=== PATIENT | female | born 1980 | race Caucasian/White ===

== ENCOUNTER → 2022-09-05 09:55 | Outpatient (CLI) | payer OTHER, MEDICAID, SELFPAY | PROVIDERS: Family Provider Family Medicine; PCP Physician Assistant; Visit Provider Physician Assistant | DX: L02.91 Cutaneous abscess, unspecified (principal) | CPT/HCPCS: 87070; 87075; 87205 ==

== ENCOUNTER 2023-10-06 21:53 | Inpatient (IN) | payer OTHER, MEDICAID, SELFPAY ==
[2023-10-06 21:59] VITALS: BP 133/80; PULSE 135; RESP 24; TEMP 37.1; O2SAT 98; BMI 35.5
--- NOTE | 2023-10-06 22:14 | ED.GENADULT ---
HPI - General Adult General Chief complaint: Toxicology Problem Stated complaint: Dr kaba for alcohol addiction Time Seen by Provider: 10/06/23 21:55 Source: patient Mode of arrival: Ambulatory History of Present Illness HPI narrative: Patient is a 43-year-old female. Has a known history of alcohol abuse. Has been to rehab multiple times over the past several years. She is currently drinking. Her last drink was in the past 24 hours. She has jaundice. She states she has a current history of ?alcoholic hepatitis? she states she is been talking with her primary doctor about getting into rehab/detox. She is been trying to decrease the amount that she has been drinking over the past several days. She drank less over the past 24 hours than what she did over the 24 hours prior to that. She is here because she is having swelling in her left lower extremity. She is also feeling like her abdomen is very distended. No fevers. No chest pain. No shortness of breath. No nausea or vomiting. No headache. No urinary symptoms or change in bowel habits. She does have a significant history of anxiety. She did recently complete a course of antibiotics for urinary tract infection. Related Data Previous Rx's Medication Instructions Recorded albuterol sulfate 90 mcg/actuation 2 puff inhalation Q4-6H PRN 08/27/23 aerosol inhaler shortness of breath or wheezing #8.5 grams methocarbamol 750 mg tablet 750 mg PO TID #30 tabs 09/24/23 naltrexone 50 mg tablet 50 mg PO DAILY #90 tabs 09/24/23 nitrofurantoin 100 mg PO BID #10 caps 09/24/23 monohydrate/macrocrystals 100 mg capsule (Macrobid) Allergies Allergy/AdvReac Type Severity Reaction Status Date / Time Penicillins Allergy Unknown Verified 08/27/23 13:52 hydrocodone AdvReac Unknown Verified 08/27/23 13:52 Review of Systems Review of Systems ROS Unobtainable: All systems reviewed & are unremarkable except as noted in HPI and below Patient History Medical History Chicken pox (~1983) Social History Smoking Status: Former smoker Smoking Status: Former smoker alcohol intake frequency: 3 or more drinks per day Alcohol type: hard liquor Substance Use Type: marijuana Exam Initial Vital Signs Initial Vital Signs: Vital Signs Temperature 98.8 F 10/06/23 21:59 Pulse Rate 135 H 10/06/23 21:59 Respiratory Rate 24 10/06/23 21:59 Blood Pressure 133/80 10/06/23 21:59 Pulse Oximetry 98 10/06/23 21:59 Oxygen Delivery Method Room Air 10/06/23 21:59 HENMT Head: normal to inspection and normocephalic Face and sinus: normal facial exam Mouth: moist mucous membranes Eyes Other: Jaundice Resp Effort & Inspection: normal respiratory effort Auscultation: clear to auscultation bilaterally Cardio Rate: tachycardic Rhythm: regular rhythm GI Inspection: distended Palpation: soft, No firm, No guarding and tender (Diffuse tenderness) Skin General: no rashes or lesions noted Neuro General: patient alert, patient awake, patient oriented x3 and moves all extremities Extrem General: capillary refill normal Procedures Paracentesis Time Out Performed: Yes Indication: Ascites Procedure: diagnostic paracentesis Local Anesthetic: lidocaine 1% Amount of anesthesia used (mL): 8 Preparation: sterile prep and drape and Blade used to make león in skin Fluid: clear Post Procedure Exam: awake, alert and normal BP Patient Tolerated Procedure: Well and No complications Scores GCS Yvette coma scale eye opening: Spontaneous [place] coma scale verbal response: Orientated Yvette coma scale motor response: Obey commands [place] coma scale total score: 15 Course Orders Ordered: ED Orders 10/06/23 22:14 US abdomen limited Stat US periph venous low extrem lt Stat 10/06/23 23:15 Urine Drug Screen, Rapid Stat 10/06/23 23:21 Consult to SHIRT MARKER - Costume Design Teacher Stat 10/06/23 23:25 Acetaminophen Stat Basic Metabolic Panel Stat Complete Blood Count AUTO DIFF Stat Ethanol (ETOH) Stat Hepatic (Liver) Panel Stat Hepatitis Acute Panel Stat Lipase Stat PTT Partial Thromboplastin Mario Stat Test Serum,Qual Stat Prothrombin Time INR Stat 10/07/23 01:29 Body Fluid Culture Stat Cell Count w Diff Body Fluid Stat 10/07/23 02:47 CT abdomen pelvis w con Stat 10/07/23 04:37 Blood Culture Stat Lactate (Lactic Acid) Stat Procalcitonin Stat Discontinued Medications Ceftriaxone Sodium 2,000 mg/ (Sodium Chloride) 100 mls @ 200 mls/hr IV NOW ONE Stop: 10/07/23 04:28 Phenobarbital (Phenobarbital 65 Mg/Ml Vial) 260 mg IV NOW ONE Stop: 10/07/23 00:46 Last Admin: 10/07/23 01:02 Dose: 260 mg Documented By: LYSSA Vital Signs Vital signs: Vital Signs - 8 hr 10/06/23 21:59 10/06/23 22:38 10/06/23 22:38 Temperature 98.8 F Pulse Rate 135 H 125 H Respiratory Rate 24 Blood Pressure 133/80 136/76 Pulse Oximetry 98 97 Oxygen Delivery Method Room Air 10/06/23 23:00 10/06/23 23:00 10/06/23 23:28 Temperature Pulse Rate 119 H 123 H Respiratory Rate Blood Pressure 135/73 Pulse Oximetry 99 100 Oxygen Delivery Method 10/06/23 23:28 10/06/23 23:30 10/06/23 23:30 Temperature Pulse Rate 125 H Respiratory Rate Blood Pressure 137/76 141/82 H Pulse Oximetry 99 Oxygen Delivery Method 10/07/23 00:00 10/07/23 00:00 10/07/23 00:30 Temperature Pulse Rate 121 H 70 Respiratory Rate 16 Blood Pressure 134/71 Pulse Oximetry 97 97 Oxygen Delivery Method 10/07/23 01:00 10/07/23 01:30 10/07/23 01:45 Temperature Pulse Rate 124 H 126 H Respiratory Rate Blood Pressure 137/70 Pulse Oximetry 99 98 Oxygen Delivery Method 10/07/23 01:45 10/07/23 02:00 10/07/23 02:00 Temperature Pulse Rate 125 H 123 H Respiratory Rate 18 Blood Pressure 140/71 Pulse Oximetry 99 95 Oxygen Delivery Method 10/07/23 02:23 10/07/23 02:23 10/07/23 02:30 Temperature Pulse Rate 129 H Respiratory Rate Blood Pressure 145/81 H 139/80 Pulse Oximetry 98 Oxygen Delivery Method 10/07/23 02:30 10/07/23 03:00 10/07/23 03:00 Temperature Pulse Rate 122 H 127 H Respiratory Rate Blood Pressure 140/77 Pulse Oximetry 97 98 Oxygen Delivery Method Medical Decision Making Lab Data Lab results reviewed: Yes I reviewed the patient's lab results. 10/06/23 23:25 10/06/23 23:25 Labs: Lab Results 10/06/23 10/06/23 10/07/23 Range/Units 23:15 23:25 01:29 WBC 18.4 H (4.5-11.0) X10^3/uL RBC 2.94 L (4.0-5.2) X10^6/uL Hgb 11.2 L (12.0-16.0) g/dL Hct 33.5 L (36-46) % MCV 113.9 H (80-100) fL MCH 37.9 H (26-34) PG MCHC 33.3 (30-36) % RDW 17.7 H (11.6-14.8) % Plt Count 219 (150-400) X10^3/uL Neut % (Auto) 83.2 H (50-75) % Lymph % (Auto) 11.2 L (25-40) % [place] % (Auto) 4.1 (3-14) % Eos % (Auto) 1.1 L (2-4) % Baso % (Auto) 0.4 (0-2) % Neut # (Auto) 12948 H (6226-4300) /uL Lymph # (Auto) 2100 (0353-8401) /uL [place] # (Auto) 800 (0-900) /uL Eos # (Auto) 200 (0-450) /uL Baso # (Auto) 100 (0-100) /uL RBC Morphology See below Macrocytosis 2+ H Stomatocytes 2+ H PT 17.0 H (9.4-12.5) SECONDS INR 1.5 H (0.9-1.3) APTT 32 (25.1-36.5) SECONDS Sodium 130 L (137-145) mmol/L Potassium 3.3 L (3.4-5.1) mmol/L Chloride 95 L (98-107) mmol/L Carbon Dioxide 24 (22-32) mmol/L BUN 5 L (7-17) mg/dL Creatinine 0.44 L (0.52-1.04) mg/dL Estimated GFR > 60 (>60) mL/min BUN/Creatinine Ratio 11.4 (6-22) Glucose 97 (70-100) mg/dL Calcium 8.1 L (8.4-10.2) mg/dL Total Bilirubin 6.0 H (0.2-1.3) mg/dL Conjugated Bilirubin 1.6 H (0.0-0.3) md/dL Unconjugated Bilirubin 2.0 H (0.0-1.1) mg/dL AST 195 H (14-36) IU/L ALT 97 H (<35) IU/L Alkaline Phosphatase 409 H (38-126) U/L Total Protein 7.8 (6.3-8.2) g/dL Albumin 3.0 L (3.5-5.0) g/dL Globulin 4.8 H (1.7-4.1) g/dL Albumin/Globulin Ratio 0.6 L (1.0-2.8) Lipase 161 (23-300) U/L Serum , Qual Negative (Negative) Fluid Color Yellow Fluid Appearance Clear Fluid RBC 1025 /uL Fld Tot Nucleated Cell 159 /uL Fluid Polynuclear WBCs 11 % Fluid Mononuclear WBCs 89 % Fluid Eosinophils 0 % Fluid Other Cells 0 % Body Fluid Clot No clots present U Opiates 300ng/mL cut Negative (Negative) Ur Oxycodone Screen Negative (Negative) Urine Methadone Screen Negative (Negative) Acetaminophen < 10 (10-30) ug/mL Ur Barbiturates Screen Negative (Negative) U Tricyclic Antidepress Negative (Negative) Ur Phencyclidine Scrn Negative (Negative) Ur Amphetamines Screen Negative (Negative) U Methamphetamines Scrn Negative (Negative) Ur MDMA Scrn (Ecstasy) Negative (Negative) U Benzodiazepines Scrn Negative (Negative) Urine Cocaine Screen Negative (Negative) U Marijuana (THC) Screen Positive H (Negative) Ethyl Alcohol 44 H ( - 10) mg/dL Imaging Data US - abdomen: Radiologist's Impression: PROCEDURE: US ABDOMEN LIMITED INDICATIONS: DISTENTION; HISTORY ALCOHOLIC HEPATITIS TECHNIQUE: Real-time scanning was performed of the abdominal, with image documentation. COMPARISON: [facility], US, ABDOMEN COMPLETE, 06/16/2012, 13:02. FINDINGS: Liver: Measures 22.7 cm in length. Increased in echogenicity. No obvious focal lesion. Decreased sonographic penetration. Gallbladder: Nondilated. No stones or sludge. Normal gallbladder wall thickness. No pericholecystic fluid. Negative sonographic Roberson's sign. Biliary ducts: Not well seen. No intrahepatic biliary ductal dilatation is identified. Pancreas: Not well seen due to overlying bowel gas. Miscellaneous: Moderate ascites in the right right lower and left lower quadrants. IMPRESSION: Decreased sonographic penetration. Limited sensitivity. 1. Liver is mildly enlarged. Increased hepatic echogenicity which could be due to hepatocellular disease and/or hepatic steatosis. 2. No acute cholecystitis demonstrated. No gallstones identified. 3. Moderate ascites. US - DVT: Radiologist's Impression: PROCEDURE: US PERIPH VENOUS LOW EXTREM LT INDICATIONS: EDEMA TECHNIQUE: Real-time imaging, as well as color and pulse Doppler interrogation, were performed of the lower extremity deep veins from the inguinal ligament to the popliteal fossa, with documentation of the visualized calf veins. COMPARISON: None. FINDINGS: The common femoral, femoral, popliteal, and the visualized calf veins are normally compressible, and free of intraluminal thrombus. Color and pulse Doppler demonstrate normal phasic intraluminal flow. There is normal augmentation response to distal compression maneuver. IMPRESSION: No findings of lower extremity deep venous thrombosis. CT scan - abdomen/pelvis: Radiologist's Impression: Diffuse circumferential wall thickening of the ascending and transverse colon compatible with colitis. No pericolonic focal drainable collection or pneumoperitoneum. Sequela of cirrhosis Indeterminate low-attenuation hepatic lesions. Recommend contrast-enhanced MRI of the abdomen for further evaluation. Abdominal and pelvic ascites. Gallbladder is contracted with pericholecystic fluid present. [facility] Narrative Medical decision making narrative: Patient has been persistently tachycardic since arrival. She also has a leukocytosis. Has new onset ascites. Paracentesis performed. Culture was pending. No organisms seen on Gram stain. Has a absolute polymorphic nuclear site count of approximately 700. She is afebrile. She had some improvement of the abdominal discomfort after the paracentesis but no improvement with her tachycardia. She did have some periods of anxiety. She was given 2 in her 60 mg of phenobarbital. She states her anxiety has resolved but again still continues to be tachycardic. CT scan does show thickening of the ascending and transverse colon consistent with colitis. She has had some diarrhea. She is multiple reasons to have the leukocytosis and the tachycardia to include her recent urinary tract infection, colitis, anxiety, alcohol withdrawal, dehydration or just her alcohol abuse history however peritonitis is a very high concern. She is new onset ascites, has abdominal pain, leukocytosis and an unexplained tachycardia. I did discuss the case with GI at [facility] who agreed that peritonitis is a concern. Recommended antibiotics and admission to the hospital. I did discuss the case with Dr. Kirk hospitalist on-call who will admit until the peritoneal cultures result. I did discuss the need for admission with the patient. She expressed understanding and agreement with plan. Discharge Plan Departure Patient Disposition: Admitted As Inpatient Clinical Impression: Peritonitis, Hyperbilirubinemia, Ascites, Alcohol abuse, Colitis Admit Date/Time: 10/07/23 04:39 Admit Provider: Cam An
[2023-10-06 22:38] VITALS: BP 136/76; PULSE 125; O2SAT 97
[2023-10-06 23:00] VITALS: BP 135/73; PULSE 119; O2SAT 99
[2023-10-06 23:28] VITALS: BP 137/76; PULSE 123; O2SAT 100
[2023-10-06 23:30] VITALS: BP 141/82; PULSE 125; O2SAT 99
[2023-10-06 23:30] LABS: UR Morphine/Opiate cutoff 300 Negative (Negative); Ur Creatinine Normal (Normal); Ur Specific Gravity Normal (Normal); Urine Amphetamines Negative (Negative); Urine Barbiturates Negative (Negative); Urine Benzodiazepines Negative (Negative); Urine Cocaine Negative (Negative); Urine MDMA Negative (Negative); Urine Methadone Negative (Negative); Urine Methamphetamines Negative (Negative); Urine Oxycodone Negative (Negative); Urine Phencyclidine Negative (Negative); Urine Tetrahydrocannabinol Positive (Negative); Urine Tricyclic Antidepressant Negative (Negative); Urine pH Normal (Normal)
[2023-10-06 23:37] LABS: Add Manual Diff / Slide Review NO; Basophils Absolute Auto 100 /uL (0-100); Basophils Percent Auto 0.4 % (0-2); Eosinophils Absolute Auto 200 /uL (0-450); Eosinophils Percent Auto 1.1 % (2-4); Hematocrit 33.5 % (36-46); Hemoglobin 11.2 g/dL (12.0-16.0); Lymphocytes Absolute Auto 2100 /uL (1100-4500); Lymphocytes Percent Auto 11.2 % (25-40); Mean Corpuscular HGB Conc 33.3 % (30-36); Mean Corpuscular Hemoglobin 37.9 PG (26-34); Mean Corpuscular Volume 113.9 fL (80-100); Monocytes Absolute Auto 800 /uL (0-900); Monocytes Percent Auto 4.1 % (3-14); Neutrophils Absolute Auto 15300 /uL (1500-7000); Neutrophils Percent Auto 83.2 % (50-75); Platelet Count 219 X10^3/uL (150-400); Red Blood Cell Count 2.94 X10^6/uL (4.0-5.2); Red Cell Distribution Width 17.7 % (11.6-14.8); White Blood Cell Count 18.4 X10^3/uL (4.5-11.0)
[2023-10-06 23:47] LABS: Pregnancy Test Serum,Qual Negative (Negative)
[2023-10-06 23:49] LABS: Alanine Aminotransferase 97 IU/L (<35); Albumin Globulin Ratio 0.6 (1.0-2.8); Alkaline Phosphatase 409 U/L (38-126); Aspartate Aminotransferase 195 IU/L (14-36); Bilirubin Conjugated 1.6 md/dL (0.0-0.3); Ethanol (ETOH) 44 mg/dL; Globulin 4.8 g/dL (1.7-4.1); HEMOLYSIS < 15 (0-50); INR 1.5 (0.9-1.3); Lipase 161 U/L (23-300); Total Protein 7.8 g/dL (6.3-8.2)
[2023-10-06 23:50] LABS: Acetaminophen < 10 ug/mL (10-30); BUN Creatinine Ratio 11.4 (6-22); Blood Urea Nitrogen 5 mg/dL (7-17); Calcium 8.1 mg/dL (8.4-10.2); Carbon Dioxide 24 mmol/L (22-32); Chloride 95 mmol/L (98-107); Estimated Glomerular Filt Rate > 60 mL/min (>60); Glucose 97 mg/dL (70-100); HEMOLYSIS < 15 (0-50); Potassium 3.3 mmol/L (3.4-5.1); Sodium 130 mmol/L (137-145)
[2023-10-06 23:52] LABS: PTT Partial Thromboplastin Tim 32 SECONDS (25.1-36.5)
[2023-10-07] VITALS (49 sets, daily range): BP systolic 113–196; BP diastolic 60–91; PULSE 70–144; RESP 10–37; TEMP 36.3–37; O2SAT 89–99; BMI 35.1
[2023-10-07] LABS: Macrocytosis 2+; Stomatocytes 2+
[2023-10-07] MEDS: PHENobarbital 65 MG/ML VIAL 260 MG IV (01:02)
[2023-10-07 02:20] LABS: Body Fluid Red Blood Cells 1025 /uL; Body Fluid Tot Nucleated Cells 159 /uL
[2023-10-07 02:22] LABS: Body Fluid Appearance CLEAR; Body Fluid Clotted? NO CLOTS PRESENT; Body Fluid Color YELLOW; Polynuclear WBC Body Fluid 11 %
[2023-10-07 02:23] LABS: Eosinophils Body Fluid 0 %; Mononuclear WBC Body Fluid 89 %; Other Cells Body Fluid 0 %
--- NOTE | 2023-10-07 02:47 | DI.CT.S_ITS ---
PROCEDURE: CT ABDOMEN PELVIS W CON INDICATIONS: Ascites, abdominal pain, tachycardia, leukocytosis TECHNIQUE: After the administration of oral and IV contrast, axial sections were acquired from the lung bases to the pubic symphysis. Coronal and sagittal reformats were performed. For radiation dose reduction, the following was used: automated exposure control, adjustment of mA and/or kV according to patient size. COMPARISON: [facility], MR, PELVIS W&WO CONTRAST, 02/09/2016, 12:14. [facility], US, US ABDOMEN COMPLETE, 07/25/2021, 13:03. [facility], US, US ABDOMEN LIMITED, 10/06/2023, 22:42. FINDINGS: Image quality: Excellent. Lung bases: Unremarkable. Heart: No significant findings. ABDOMEN: Liver: Liver is enlarged. Severe hepatic steatosis. Heterogeneous enhancement. There is a 2.5 cm hypodensity in segment IV. Gallbladder: No radiopaque gallstones or wall thickening. There is pericholecystic fluid. Biliary ducts: No biliary dilation. Pancreas: No ductal dilation. Spleen: Size is within normal limits. Adrenal Glands: No adrenal nodules. Kidneys and Ureters: No hydronephrosis. No solid mass. No complex renal cystic lesion which requires follow up. Stomach and Bowel: There is diffuse colonic wall thickening involving the ascending and transverse colon. Mild diverticulosis without diverticulitis. Normal appendix. Peritoneum: There is a small to moderate amount of peritoneal fluid in the lesser sac, pericolic gutters and pelvis. No free air. Ventral Wall: No hernia. Abdominal Nodes: No retroperitoneal or mesenteric adenopathy by size criteria. Vessels: Aorta and inferior vena cava are normal in size. PELVIS: Pelvic Organs: Unremarkable. Bladder: Unremarkable. Pelvic Nodes: No enlarged lymph nodes. Miscellaneous: No inguinal hernias are seen. Bones: Unremarkable. IMPRESSION: 1. Diffuse colonic wall thickening involving the ascending and transverse colon consistent with colitis. 2. Hepatomegaly and severe hepatic steatosis. Liver demonstrates heterogeneous enhancement. Please correlate with liver function tests. 3. There is a vague 2.5 cm hypodensity in segment IV liver. Consider liver protocol MRI for further evaluation. 4. Mild diverticulosis without diverticulitis. 5. Small to moderate amount of ascites. Pericholecystic fluid is present, which is likely a related to liver disease. If there is clinical suspicion for acute cholecystitis, consider HIDA scan for further evaluation. No significant discrepancy with the material handler 2nd shift radiology preliminary report. Dictated by: Semaj Beth M.D. on 10/07/2023 at 8:21 Approved by: Semaj Beth M.D. on 10/07/2023 at 8:31
[2023-10-07 04:52] LABS: Lactate (Lactic Acid) 3.6 mmol/L (0.7-2.1)
[2023-10-07 05:10] LABS: Procalcitonin 0.31 ng/mL (<0.5)
--- NOTE | 2023-10-07 05:36 | PM.HP.1 ---
History of Present Illness History of Present Illness Date Patient Seen: 10/07/23 Chief complaint: Dr kaba for alcohol addiction Narrative: 43 y/o with longstanding alcoholism, presented to ED with Lt leg swelling and bloated abdomen. That appeared and got worse in the past few weeks.She went through several detoxes in the past, some of which in ICU. On presentation anxious, tachycardic, slightly better after phenobarb but withdrawing with alcohol level of ~ 40. Diagnosed with alcoholic hepatits and ascites. Had paracenthesis of 1.2 L with preliminary fluid not typical for PBP. Cultures pending. Started on abx. [facility] Medical History (Updated 10/07/23 @ 07:38 by Cam Kirk MD) Alcoholic hepatitis Chicken pox (~1983) Social History household members: significant other and family Smoking Status: Former smoker Meds Home Medications and Allergies Home Medications Medication Instructions Recorded Confirmed Type albuterol sulfate 90 mcg/actuation 2 puff inhalation Q4-6H PRN 08/27/23 09/24/23 Rx aerosol inhaler shortness of breath or wheezing #8.5 grams methocarbamol 750 mg tablet 750 mg PO TID #30 tabs 09/24/23 09/24/23 Rx naltrexone 50 mg tablet 50 mg PO DAILY #90 tabs 09/24/23 09/24/23 Rx nitrofurantoin 100 mg PO BID #10 caps 09/24/23 09/24/23 Rx monohydrate/macrocrystals 100 mg capsule (Macrobid) Allergies Allergy/AdvReac Type Severity Reaction Status Date / Time Penicillins Allergy Unknown Verified 08/27/23 13:52 hydrocodone AdvReac Unknown Verified 08/27/23 13:52 Review of Systems Cardiovascular Comments: palpitations Respiratory Comments: w/o dyspnea Gastrointestinal Comments: swollen and tender abdomen Genitourinary Comments: w/o dysuria Psychiatric Comments: w/o hallucinations anxious Exam Vital Signs (past 8 hours): - 10/06/23 21:59 10/06/23 22:38 10/06/23 22:38 Temperature 98.8 F Pulse Rate 135 H 125 H Respiratory Rate 24 Blood Pressure 133/80 136/76 Pulse Oximetry 98 97 Oxygen Delivery Method Room Air 10/06/23 23:00 10/06/23 23:00 10/06/23 23:28 Temperature Pulse Rate 119 H 123 H Respiratory Rate Blood Pressure 135/73 Pulse Oximetry 99 100 Oxygen Delivery Method 10/06/23 23:28 10/06/23 23:30 10/06/23 23:30 Temperature Pulse Rate 125 H Respiratory Rate Blood Pressure 137/76 141/82 H Pulse Oximetry 99 Oxygen Delivery Method 10/07/23 00:00 10/07/23 00:00 10/07/23 00:30 Temperature Pulse Rate 121 H 70 Respiratory Rate 16 Blood Pressure 134/71 Pulse Oximetry 97 97 Oxygen Delivery Method 10/07/23 01:00 10/07/23 01:30 10/07/23 01:45 Temperature Pulse Rate 124 H 126 H Respiratory Rate Blood Pressure 137/70 Pulse Oximetry 99 98 Oxygen Delivery Method 10/07/23 01:45 10/07/23 02:00 10/07/23 02:00 Temperature Pulse Rate 125 H 123 H Respiratory Rate 18 Blood Pressure 140/71 Pulse Oximetry 99 95 Oxygen Delivery Method 10/07/23 02:23 10/07/23 02:23 10/07/23 02:30 Temperature Pulse Rate 129 H Respiratory Rate Blood Pressure 145/81 H 139/80 Pulse Oximetry 98 Oxygen Delivery Method 10/07/23 02:30 10/07/23 03:00 10/07/23 03:00 Temperature Pulse Rate 122 H 127 H Respiratory Rate Blood Pressure 140/77 Pulse Oximetry 97 98 Oxygen Delivery Method 10/07/23 04:46 10/07/23 04:51 10/07/23 04:51 Temperature Pulse Rate 133 H 135 H Respiratory Rate 21 Blood Pressure 139/72 Pulse Oximetry 97 99 Oxygen Delivery Method 10/07/23 05:00 10/07/23 05:00 Temperature Pulse Rate 136 H Respiratory Rate 24 Blood Pressure 136/63 Pulse Oximetry 99 Oxygen Delivery Method Oxygen Delivery Method Room Air Const Other: Sitting in bed in no distress HENMT Other: normocephalic Eyes Other: scleral icterus Neck Other: supple Resp Other: Normal respiratory effort Cardio Other: Regular, tachycardic GI Other: ascites Neuro Other: tremulous Psych Other: anxious Objective Labs 10/06/23 23:25 10/06/23 23:25 Labs: Laboratory Results - last 24 hr 10/06/23 10/06/2323 23:15 23:25 23:28 WBC 18.4 H RBC 2.94 L Hgb 11.2 L Hct 33.5 L MCV 113.9 H MCH 37.9 H MCHC 33.3 RDW 17.7 H Plt Count 219 Neut % (Auto) 83.2 H Lymph % (Auto) 11.2 L [place] % (Auto) 4.1 Eos % (Auto) 1.1 L Baso % (Auto) 0.4 Neut # (Auto) 57529 H Lymph # (Auto) 2100 [place] # (Auto) 800 Eos # (Auto) 200 Baso # (Auto) 100 RBC Morphology See below Macrocytosis 2+ H Stomatocytes 2+ H PT 17.0 H INR 1.5 H APTT 32 Sodium 130 L Potassium 3.3 L Chloride 95 L Carbon Dioxide 24 BUN 5 L Creatinine 0.44 L Estimated GFR > 60 BUN/Creatinine Ratio 11.4 Glucose 97 Lactate 3.6 H Calcium 8.1 L Total Bilirubin 6.0 H Conjugated Bilirubin 1.6 H Unconjugated Bilirubin 2.0 H AST 195 H ALT 97 H Alkaline Phosphatase 409 H Total Protein 7.8 Albumin 3.0 L Globulin 4.8 H Albumin/Globulin Ratio 0.6 L Lipase 161 Procalcitonin 0.31 Serum , Qual Negative Fluid Color Fluid Appearance Fluid RBC Fld Tot Nucleated Cell Fluid Polynuclear WBCs Fluid Mononuclear WBCs Fluid Eosinophils Fluid Other Cells Body Fluid Clot U Opiates 300ng/mL cut Negative Ur Oxycodone Screen Negative Urine Methadone Screen Negative Acetaminophen < 10 Ur Barbiturates Screen Negative U Tricyclic Antidepress Negative Ur Phencyclidine Scrn Negative Ur Amphetamines Screen Negative U Methamphetamines Scrn Negative Ur MDMA Scrn (Ecstasy) Negative U Benzodiazepines Scrn Negative Urine Cocaine Screen Negative U Marijuana (THC) Screen Positive H Ethyl Alcohol 44 H 10/07/23 01:29 WBC RBC Hgb Hct MCV MCH MCHC RDW Plt Count Neut % (Auto) Lymph % (Auto) [place] % (Auto) Eos % (Auto) Baso % (Auto) Neut # (Auto) Lymph # (Auto) [place] # (Auto) Eos # (Auto) Baso # (Auto) RBC Morphology Macrocytosis Stomatocytes PT INR APTT Sodium Potassium Chloride Carbon Dioxide BUN Creatinine Estimated GFR BUN/Creatinine Ratio Glucose Lactate Calcium Total Bilirubin Conjugated Bilirubin Unconjugated Bilirubin AST ALT Alkaline Phosphatase Total Protein Albumin Globulin Albumin/Globulin Ratio Lipase Procalcitonin Serum , Qual Fluid Color Yellow Fluid Appearance Clear Fluid RBC 1025 Fld Tot Nucleated Cell 159 Fluid Polynuclear WBCs 11 Fluid Mononuclear WBCs 89 Fluid Eosinophils 0 Fluid Other Cells 0 Body Fluid Clot No clots present U Opiates 300ng/mL cut Ur Oxycodone Screen Urine Methadone Screen Acetaminophen Ur Barbiturates Screen U Tricyclic Antidepress Ur Phencyclidine Scrn Ur Amphetamines Screen U Methamphetamines Scrn Ur MDMA Scrn (Ecstasy) U Benzodiazepines Scrn Urine Cocaine Screen U Marijuana (THC) Screen Ethyl Alcohol Assessment & Plan Assessment and plan (1) Alcohol withdrawal: Status: Acute Plan: CIWA / Ativan for now (2) Alcoholic hepatitis: Qualifiers: Ascites presence: unspecified Qualified Code(s): K70.10 - Alcoholic hepatitis without ascites Status: Acute Plan: Discussed complete abstinence Monitored LFTs (3) Ascites: Status: Acute Plan: 1.2 L tap in ED - new onset, likely following alcoholic hepatitis - not convincing for PBP - CT official report pending - possibly colitis as per ED attending - She has leukocytosis - Tachycardic, but not hypotensive - chronically tachicardic - likely due to withdrawal - started abx after she had peritoneal fluid and blood cultured
[2023-10-07] MEDS: LORazepam 2 MG/ML INJ IV (05:51)
[2023-10-07] MEDS: THIAMINE 100 MG in SODIUM CHLORIDE 0.9% 100 ML 404 MG IV (06:04)
[2023-10-07 06:23] LABS: Reflexed Lactate in 2 Hours Y
[2023-10-07] MEDS: cefTRIAXone 2,000 MG in SODIUM CHLORIDE 0.9% 100 ML 200 MG IV (06:30)
--- NOTE | 2023-10-07 07:28 | P.HP_ITS ---
History of Present Illness History of Present Illness Date Patient Seen: 10/07/23 Chief complaint: Dr kaba for alcohol addiction Narrative: 43 y/o with longstanding alcoholism, presented to ED with Lt leg swelling and bloated abdomen. That appeared and got worse in the past few weeks.She went through several detoxes in the past, some of which in ICU. On presentation anxious, tachycardic, slightly better after phenobarb but withdrawing with alcohol level of ~ 40. Diagnosed with alcoholic hepatits and ascites. Had paracenthesis of 1.2 L with preliminary fluid not typical for PBP. Cultures pending. Started on abx. [facility] Medical History (Updated 10/07/23 @ 07:38 by Cam Kirk MD) Alcoholic hepatitis Chicken pox (~1983) Social History household members: significant other and family Smoking Status: Former smoker Meds Home Medications and Allergies Home Medications Medication Instructions Recorded Confirmed Type albuterol sulfate 90 mcg/actuation 2 puff inhalation Q4-6H PRN 08/27/23 09/24/23 Rx aerosol inhaler shortness of breath or wheezing #8.5 grams methocarbamol 750 mg tablet 750 mg PO TID #30 tabs 09/24/23 09/24/23 Rx naltrexone 50 mg tablet 50 mg PO DAILY #90 tabs 09/24/23 09/24/23 Rx nitrofurantoin 100 mg PO BID #10 caps 09/24/23 09/24/23 Rx monohydrate/macrocrystals 100 mg capsule (Macrobid) Allergies Allergy/AdvReac Type Severity Reaction Status Date / Time Penicillins Allergy Unknown Verified 08/27/23 13:52 ceftriaxone [From Rocephin] AdvReac Intermediate Verified 10/07/23 09:04 hydrocodone AdvReac Unknown Verified 08/27/23 13:52 Review of Systems Cardiovascular Comments: palpitations Respiratory Comments: w/o dyspnea Gastrointestinal Comments: swollen and tender abdomen Genitourinary Comments: w/o dysuria Psychiatric Comments: w/o hallucinations anxious Exam Vital Signs (past 8 hours): - 10/06/23 23:30 10/06/23 23:30 10/07/23 00:00 Pulse Rate 125 H 121 H Respiratory Rate Blood Pressure 141/82 H Pulse Oximetry 99 97 11/28/23 00:00 10/07/23 00:30 10/07/23 01:00 Pulse Rate 70 124 H Respiratory Rate 16 Blood Pressure 134/71 Pulse Oximetry 97 99 10/07/23 01:30 10/07/23 01:45 10/07/23 01:45 Pulse Rate 126 H 125 H Respiratory Rate Blood Pressure 137/70 Pulse Oximetry 98 99 10/07/23 02:00 10/07/23 02:00 10/07/23 02:23 Pulse Rate 123 H 129 H Respiratory Rate 18 Blood Pressure 140/71 Pulse Oximetry 95 98 10/07/23 02:23 10/07/23 02:30 10/07/23 02:30 Pulse Rate 122 H Respiratory Rate Blood Pressure 145/81 H 139/80 Pulse Oximetry 97 10/07/23 03:00 10/07/23 03:00 10/07/23 04:46 Pulse Rate 127 H 133 H Respiratory Rate Blood Pressure 140/77 Pulse Oximetry 98 97 10/07/23 04:51 10/07/23 04:51 10/07/23 05:00 Pulse Rate 135 H 136 H Respiratory Rate 21 24 Blood Pressure 139/72 Pulse Oximetry 99 99 10/07/23 05:00 10/07/23 05:35 10/07/23 06:00 Pulse Rate 135 H 131 H Respiratory Rate 27 H Blood Pressure 136/63 Pulse Oximetry 98 95 10/07/23 06:20 Pulse Rate 133 H Respiratory Rate 20 Blood Pressure 135/65 Pulse Oximetry Oxygen Delivery Method Room Air Const Other: Sitting in bed in no distress HENMT Other: normocephalic Eyes Other: scleral icterus Neck Other: supple Resp Other: Normal respiratory effort Cardio Other: Regular, tachycardic GI Other: ascites Neuro Other: tremulous Psych Other: anxious Objective Labs 10/07/23 07:50 10/07/23 07:50 Labs: Laboratory Results - last 24 hr 10/06/23 10/06/23 10/06/23 23:15 23:25 23:28 WBC 18.4 H RBC 2.94 L Hgb 11.2 L Hct 33.5 L MCV 113.9 H MCH 37.9 H MCHC 33.3 RDW 17.7 H Plt Count 219 Neut % (Auto) 83.2 H Lymph % (Auto) 11.2 L [place] % (Auto) 4.1 Eos % (Auto) 1.1 L Baso % (Auto) 0.4 Neut # (Auto) 05565 H Lymph # (Auto) 2100 [place] # (Auto) 800 Eos # (Auto) 200 Baso # (Auto) 100 RBC Morphology See below Macrocytosis 2+ H Stomatocytes 2+ H PT 17.0 H INR 1.5 H APTT 32 Sodium 130 L Potassium 3.3 L Chloride 95 L Carbon Dioxide 24 BUN 5 L Creatinine 0.44 L Estimated GFR > 60 BUN/Creatinine Ratio 11.4 Glucose 97 Lactate 3.6 H Calcium 8.1 L Total Bilirubin 6.0 H Conjugated Bilirubin 1.6 H Unconjugated Bilirubin 2.0 H AST 195 H ALT 97 H Alkaline Phosphatase 409 H Total Protein 7.8 Albumin 3.0 L Globulin 4.8 H Albumin/Globulin Ratio 0.6 L Lipase 161 Procalcitonin 0.31 Serum , Qual Negative Fluid Color Fluid Appearance Fluid RBC Fld Tot Nucleated Cell Fluid Polynuclear WBCs Fluid Mononuclear WBCs Fluid Eosinophils Fluid Other Cells Body Fluid Clot U Opiates 300ng/mL cut Negative Ur Oxycodone Screen Negative Urine Methadone Screen Negative Acetaminophen < 10 Ur Barbiturates Screen Negative U Tricyclic Antidepress Negative Ur Phencyclidine Scrn Negative Ur Amphetamines Screen Negative U Methamphetamines Scrn Negative Ur MDMA Scrn (Ecstasy) Negative U Benzodiazepines Scrn Negative Urine Cocaine Screen Negative U Marijuana (THC) Screen Positive H Ethyl Alcohol 44 H 10/07/23 10/07/23 01:29 06:30 WBC RBC Hgb Hct MCV MCH MCHC RDW Plt Count Neut % (Auto) Lymph % (Auto) [place] % (Auto) Eos % (Auto) Baso % (Auto) Neut # (Auto) Lymph # (Auto) [place] # (Auto) Eos # (Auto) Baso # (Auto) RBC Morphology Macrocytosis Stomatocytes PT INR APTT Sodium Potassium Chloride Carbon Dioxide BUN Creatinine Estimated GFR BUN/Creatinine Ratio Glucose Lactate 2.0 Calcium Total Bilirubin Conjugated Bilirubin Unconjugated Bilirubin AST ALT Alkaline Phosphatase Total Protein Albumin Globulin Albumin/Globulin Ratio Lipase Procalcitonin Serum , Qual Fluid Color Yellow Fluid Appearance Clear Fluid RBC 1025 Fld Tot Nucleated Cell 159 Fluid Polynuclear WBCs 11 Fluid Mononuclear WBCs 89 Fluid Eosinophils 0 Fluid Other Cells 0 Body Fluid Clot No clots present U Opiates 300ng/mL cut Ur Oxycodone Screen Urine Methadone Screen Acetaminophen Ur Barbiturates Screen U Tricyclic Antidepress Ur Phencyclidine Scrn Ur Amphetamines Screen U Methamphetamines Scrn Ur MDMA Scrn (Ecstasy) U Benzodiazepines Scrn Urine Cocaine Screen U Marijuana (THC) Screen Ethyl Alcohol Assessment & Plan Assessment and plan (1) Alcohol withdrawal: Status: Acute Plan: CIWA / Ativan for now (2) Alcoholic hepatitis: Qualifiers: Ascites presence: unspecified Qualified Code(s): K70.10 - Alcoholic hepatitis without ascites Status: Acute Plan: Discussed complete abstinence Monitored LFTs MDF of 33, start methylprednisolone 32mg IV daily x28 days (3) Ascites: Status: Acute Plan: 1.2 L tap in ED - new onset, likely following alcoholic hepatitis - cell count not consistent with SBP - Tachycardic, but not hypotensive - chronically tachicardic - likely due to withdrawal - started abx after she had peritoneal fluid and blood cultured (4) Colitis: Status: Acute Plan: -CT abd pelvis with diffuse colonic wall thickening of ascending and transverse colon -patinet having abd pain and diarrhea -WBC of 18, now downtrending -start levaquin plus flagyl, had reaction with rocephin of flushing, tingling in face and tachy which resolved when drip stopped -GI stool PCR if able Plan Dispo: Several days to treat alcoholic hepatitis, colitis and alcohol withdrawals. Quality VTE Deep Vein Thrombosis/Pulmonary Embolism Present on Admission: No
--- NOTE | 2023-10-07 07:56 | PC.NURSE ---
Admit Note-Patient admitted to ICU room 230 at 0530. A/Ox4, CIWA 9, mostly anxiety, mild agitation, and tremors. 1mg IV Ativan given, IV Thiamine infused, Rocephin started but patient stated she started to feel numb, hot, and tingly on my face face flush. HR up to 155 from 130, other VSS, also had nausea without vomitting. Abx stopped, report given to Day RN.
[2023-10-07 07:57] LABS: MRSA (Nasal) PCR Not Detected (Not Detect)
[2023-10-07 08:10] LABS: Add Manual Diff / Slide Review NO; Basophils Absolute Auto 100 /uL (0-100); Basophils Percent Auto 0.6 % (0-2); Eosinophils Absolute Auto 100 /uL (0-450); Hematocrit 30.6 % (36-46); Hemoglobin 10.5 g/dL (12.0-16.0); Lymphocytes Absolute Auto 1300 /uL (1100-4500); Mean Corpuscular HGB Conc 34.5 % (30-36); Mean Corpuscular Hemoglobin 38.7 PG (26-34); Mean Corpuscular Volume 112.4 fL (80-100); Monocytes Absolute Auto 700 /uL (0-900); Monocytes Percent Auto 5.3 % (3-14); Neutrophils Absolute Auto 10900 /uL (1500-7000); Neutrophils Percent Auto 83.1 % (50-75); Platelet Count 168 X10^3/uL (150-400); Red Blood Cell Count 2.72 X10^6/uL (4.0-5.2); Red Cell Distribution Width 17.7 % (11.6-14.8); White Blood Cell Count 13.1 X10^3/uL (4.5-11.0)
[2023-10-07 08:28] LABS: Alanine Aminotransferase 84 IU/L (<35); Albumin 2.7 g/dL (3.5-5.0); Albumin Globulin Ratio 0.6 (1.0-2.8); Alkaline Phosphatase 363 U/L (38-126); Aspartate Aminotransferase 178 IU/L (14-36); BUN Creatinine Ratio 14.6 (6-22); Bilirubin Total 5.9 mg/dL (0.2-1.3); Blood Urea Nitrogen 6 mg/dL (7-17); Calcium 7.9 mg/dL (8.4-10.2); Carbon Dioxide 26 mmol/L (22-32); Chloride 97 mmol/L (98-107); Estimated Glomerular Filt Rate > 60 mL/min (>60); Globulin 4.3 g/dL (1.7-4.1); Glucose 121 mg/dL (70-100); HEMOLYSIS < 15 (0-50); Magnesium 1.9 mg/dL (1.6-2.3); Potassium 3.4 mmol/L (3.4-5.1); Sodium 130 mmol/L (137-145)
[2023-10-07] MEDS: methylPREDNISolone 125 MG/2 ML VIAL 32 MG IV (08:32)
[2023-10-07] MEDS: THIAMINE 100 MG TABLET PO (08:33)
[2023-10-07] MEDS: FOLIC ACID 1 MG TABLET PO (08:33)
[2023-10-07] MEDS: SODIUM CHLORIDE 0.9% FLUSH 10 ML IV ×2 (08:33→20:19)
[2023-10-07 08:51] LABS: Macrocytosis 2+
[2023-10-07] MEDS: POTASSIUM CHLORIDE 20 MEQ TAB 40 MEQ PO (09:11)
[2023-10-07] MEDS: levoFLOXacin 250 MG TABLET 750 MG PO (10:21)
[2023-10-07] MEDS: metroNIDAZOLE 500 MG TABLET PO ×2 (10:27→17:15)
[2023-10-07 13:30] LABS: Adenovirus F 40/41 Not Detected (Not Detect); Astrovirus Not Detected (Not Detect); Campylobacter Not Detected (Not Detect); Clostridium difficile toxin AB Not Detected (Not Detect); Cryptosporidium Not Detected (Not Detect); Cyclospora cayetanensis Not Detected (Not Detect); Entamoeba histolytica Not Detected (Not Detect); Enteroaggregative E.coli Detected (Not Detect); Enteropathogenic E.coli Not Detected (Not Detect); Enterotoxigenic E.coli It/st Not Detected (Not Detect); Giardia lamblia Not Detected (Not Detect); Norovirus GI/GII Not Detected (Not Detect); Plesiomonsa shigelloides Not Detected (Not Detect); Rotavirus A Not Detected (Not Detect); Salmonella Not Detected (Not Detect); Sapovirus Not Detected (Not Detect); Shiga-like toxin-prod E.coli Not Detected (Not Detect); Shigella/Enteroinvasive E.coli Not Detected (Not Detect); Vibrio Not Detected (Not Detect); Vibrio cholerae Not Detected (Not Detect); Yersinia enterocolitica Not Detected (Not Detect)
[2023-10-07] MEDS: SODIUM CHLORIDE 0.9% 1,000 ML 100 ML IV ×2 (13:48→23:25)
[2023-10-07] MEDS: chlordiazePOXIDE 25 MG CAPSULE PO ×3 (13:48→20:18)
[2023-10-07] MEDS: LOPERAMIDE 2 MG CAPSULE PO ×3 (13:48→22:30)
[2023-10-07 14:35] LABS: MRSA (Nasal) PCR Not Detected (Not Detect)
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
[2023-10-08] VITALS (18 sets, daily range): BP systolic 115–150; BP diastolic 61–108; PULSE 93–120; RESP 16–17; TEMP 36.2–37.2; O2SAT 88–96
[2023-10-08] MEDS: metroNIDAZOLE 500 MG TABLET PO ×2 (01:52→08:45)
[2023-10-08 03:16] LABS: HBsAg Screen Negative (Negative); Hepatitis A Antibody IgM Negative (Negative); Hepatitis B Core Antibody IgM Negative (Negative); Hepatitis C Antibody Non Reactive (Non Reactive)
[2023-10-08 05:08] LABS: INR 1.7 (0.9-1.3); Prothrombin Time 19.1 SECONDS (9.4-12.5)
[2023-10-08 05:15] LABS: Alanine Aminotransferase 70 IU/L (<35); Albumin 2.4 g/dL (3.5-5.0); Albumin Globulin Ratio 0.6 (1.0-2.8); Alkaline Phosphatase 330 U/L (38-126); Aspartate Aminotransferase 101 IU/L (14-36); BUN Creatinine Ratio 17.4 (6-22); Bilirubin Total 3.5 mg/dL (0.2-1.3); Blood Urea Nitrogen 8 mg/dL (7-17); Calcium 7.6 mg/dL (8.4-10.2); Carbon Dioxide 27 mmol/L (22-32); Chloride 101 mmol/L (98-107); Estimated Glomerular Filt Rate > 60 mL/min (>60); Globulin 4.2 g/dL (1.7-4.1); Glucose 103 mg/dL (70-100); HEMOLYSIS < 15 (0-50); Potassium 3.7 mmol/L (3.4-5.1); Sodium 132 mmol/L (137-145); Total Protein 6.6 g/dL (6.3-8.2)
[2023-10-08 05:17] LABS: Add Manual Diff / Slide Review NO; Basophils Absolute Auto 0 /uL (0-100); Basophils Percent Auto 0.4 % (0-2); Eosinophils Absolute Auto 0 /uL (0-450); Eosinophils Percent Auto 0.2 % (2-4); Hematocrit 27.1 % (36-46); Hemoglobin 9.2 g/dL (12.0-16.0); Lymphocytes Absolute Auto 1200 /uL (1100-4500); Lymphocytes Percent Auto 11.4 % (25-40); Mean Corpuscular HGB Conc 34.1 % (30-36); Mean Corpuscular Hemoglobin 39.3 PG (26-34); Mean Corpuscular Volume 115.4 fL (80-100); Monocytes Absolute Auto 500 /uL (0-900); Monocytes Percent Auto 4.6 % (3-14); Neutrophils Absolute Auto 8700 /uL (1500-7000); Neutrophils Percent Auto 83.4 % (50-75); Platelet Count 163 X10^3/uL (150-400); Red Blood Cell Count 2.35 X10^6/uL (4.0-5.2); Red Cell Distribution Width 18.1 % (11.6-14.8); White Blood Cell Count 10.4 X10^3/uL (4.5-11.0)
[2023-10-08 05:54] LABS: Anisocytosis 1+; Macrocytosis 2+
[2023-10-08] MEDS: methylPREDNISolone 125 MG/2 ML VIAL 32 MG IV (08:42)
[2023-10-08] MEDS: LOPERAMIDE 2 MG CAPSULE PO (08:43)
[2023-10-08] MEDS: levoFLOXacin 250 MG TABLET 750 MG PO (08:43)
[2023-10-08] MEDS: chlordiazePOXIDE 25 MG CAPSULE PO ×3 (08:44→20:42)
[2023-10-08] MEDS: FOLIC ACID 1 MG TABLET PO (08:44)
[2023-10-08] MEDS: THIAMINE 100 MG TABLET PO (08:44)
[2023-10-08] MEDS: SODIUM CHLORIDE 0.9% FLUSH 10 ML IV ×2 (08:44→20:42)
[2023-10-08 09:15] LABS: Folate 3.1 ng/mL (2.76-20.0); Vitamin B12 936 pg/mL (239-931)
--- NOTE | 2023-10-08 11:25 | CM.DPC ---
DCP Cont. Reviewed EMR and team rounds for status updates. Pt's liver function is not yet stable enough to d/c today. Per Dr. Henderson, likely home in 1-2 days. This HIDES SOAKER met with pt at bedside and provided OP/IN SARY tx options. Offered supportive counseling and encouragement for maintaining goal of recovery/sobriety. She will need a Preferential Medical Boarding Pass at time of d/c back to [place]. No further needs identified at this time.
[2023-10-08] MEDS: IBUPROFEN 400 MG TABLET 800 MG PO ×2 (13:18→20:46)
--- NOTE | 2023-10-08 15:35 | PM.PN.1 ---
Subjective Subjective Interval history: Patient feeling much better today. Diarrhea slowing down and more formed. Thinks she'll be ready to go home tomorrow. Exam Vital Signs (past 8 hours): - 10/08/23 08:00 10/08/23 08:00 10/08/23 08:42 Temperature 98.7 F Pulse Rate 98 H 116 H Blood Pressure 127/68 Pulse Oximetry 94 96 Oxygen Delivery Method Oxygen Flow Rate 0 10/08/23 08:58 10/08/23 09:01 10/08/23 10:00 Temperature Pulse Rate Blood Pressure 141/108 H 115/71 Pulse Oximetry Oxygen Delivery Method Room Air Oxygen Flow Rate 10/08/23 10:35 10/08/23 10:36 10/08/23 11:00 Temperature Pulse Rate 120 H Blood Pressure 150/89 H Pulse Oximetry 88 L 95 Oxygen Delivery Method Oxygen Flow Rate 10/08/23 12:00 Temperature Pulse Rate Blood Pressure 130/81 Pulse Oximetry Oxygen Delivery Method Oxygen Flow Rate Oxygen Delivery Method Room Air Oxygen Flow Rate 0 Const Other: Sitting in bed in no distress HENMT Other: normocephalic Eyes Other: scleral icterus Neck Other: supple Resp Other: Normal respiratory effort Cardio Other: Regular, tachycardic GI Other: abdominal tenderness improving Neuro Other: trace tremulousness Psych Other: calm Objective Labs 10/08/23 04:00 10/08/23 04:00 Labs: Laboratory Results - last 24 hr 10/06/23 10/08/23 23:25 04:00 WBC 10.4 RBC 2.35 L Hgb 9.2 L Hct 27.1 L MCV 115.4 H D MCH 39.3 H MCHC 34.1 RDW 18.1 H Plt Count 163 Neut % (Auto) 83.4 H Lymph % (Auto) 11.4 L [place] % (Auto) 4.6 Eos % (Auto) 0.2 L Baso % (Auto) 0.4 Neut # (Auto) 8700 H Lymph # (Auto) 1200 [place] # (Auto) 500 Eos # (Auto) 0 Baso # (Auto) 0 RBC Morphology See below Anisocytosis 1+ H Macrocytosis 2+ H PT 19.1 H INR 1.7 H Sodium 132 L Potassium 3.7 Chloride 101 Carbon Dioxide 27 BUN 8 Creatinine 0.46 L Estimated GFR > 60 BUN/Creatinine Ratio 17.4 Glucose 103 H Calcium 7.6 L Total Bilirubin 3.5 H AST 101 H ALT 70 H Alkaline Phosphatase 330 H Total Protein 6.6 Albumin 2.4 L Globulin 4.2 H Albumin/Globulin Ratio 0.6 L Vitamin B12 936 H Folate 3.1 Hepatitis A IgM Ab Negative Hep Bs Antigen Negative Hep B Core IgM Ab Negative Hepatitis C Antibody Non reactive Hep C Ab Signal/Cutoff Comment [facility] Medical History (Updated 10/07/23 @ 07:38 by Cam Kirk MD) Alcoholic hepatitis Chicken pox (~1983) Social History household members: significant other, family and children Smoking Status: Former smoker Assessment & Plan Assessment and plan (1) Alcohol withdrawal: Status: Acute Plan: CIWA / Ativan librium po with taper on dc (2) Alcoholic hepatitis: Qualifiers: Ascites presence: unspecified Qualified Code(s): K70.10 - Alcoholic hepatitis without ascites Status: Acute Plan: Discussed complete abstinence Monitored LFTs MDF of 33, start methylprednisolone 32mg IV daily x28 days will convert to prednisone on discharge (3) Ascites: Status: Acute Plan: 1.2 L tap in ED - new onset, likely following alcoholic hepatitis - cell count not consistent with SBP, culture negative - Tachycardic, but not hypotensive - chronically tachycardic - likely due to withdrawal (4) Colitis: Status: Acute Plan: -CT abd pelvis with diffuse colonic wall thickening of ascending and transverse colon -patient having abd pain and diarrhea -WBC of 18, now normalized -start levaquin plus flagyl, had reaction with rocephin of flushing, tingling in face and tachy which resolved when drip stopped -GI stool PCR positive for EAEC -levaquin x5 days, dc flagyl Plan Dispo: Home on 10/09. Quality VTE Deep Vein Thrombosis/Pulmonary Embolism Present on Admission: No
[2023-10-08] MEDS: MULTIVITAMIN 1 TABLET 1 TAB PO (15:49)
[2023-10-09 04:00] VITALS: BP 138/79; PULSE 93; RESP 17; TEMP 36.4; O2SAT 97
[2023-10-09 05:01] LABS: INR 1.6 (0.9-1.3); Prothrombin Time 18.2 SECONDS (9.4-12.5)
[2023-10-09 05:09] LABS: Alanine Aminotransferase 66 IU/L (<35); Albumin 2.5 g/dL (3.5-5.0); Albumin Globulin Ratio 0.6 (1.0-2.8); Alkaline Phosphatase 361 U/L (38-126); Aspartate Aminotransferase 114 IU/L (14-36); BUN Creatinine Ratio 26.5 (6-22); Blood Urea Nitrogen 13 mg/dL (7-17); Calcium 7.8 mg/dL (8.4-10.2); Carbon Dioxide 26 mmol/L (22-32); Chloride 103 mmol/L (98-107); Estimated Glomerular Filt Rate > 60 mL/min (>60); Glucose 102 mg/dL (70-100); HEMOLYSIS < 15 (0-50); Potassium 3.6 mmol/L (3.4-5.1); Sodium 135 mmol/L (137-145); Total Protein 6.5 g/dL (6.3-8.2)
[2023-10-09 05:24] LABS: Add Manual Diff / Slide Review NO; Basophils Absolute Auto 0 /uL (0-100); Basophils Percent Auto 0.4 % (0-2); Eosinophils Absolute Auto 100 /uL (0-450); Eosinophils Percent Auto 0.7 % (2-4); Hematocrit 30.6 % (36-46); Hemoglobin 10.2 g/dL (12.0-16.0); Lymphocytes Absolute Auto 1500 /uL (1100-4500); Lymphocytes Percent Auto 14.2 % (25-40); Mean Corpuscular HGB Conc 33.5 % (30-36); Mean Corpuscular Hemoglobin 38.6 PG (26-34); Mean Corpuscular Volume 115.1 fL (80-100); Monocytes Absolute Auto 600 /uL (0-900); Monocytes Percent Auto 5.6 % (3-14); Neutrophils Absolute Auto 8100 /uL (1500-7000); Neutrophils Percent Auto 79.1 % (50-75); Platelet Count 197 X10^3/uL (150-400); Red Blood Cell Count 2.66 X10^6/uL (4.0-5.2); Red Cell Distribution Width 18.5 % (11.6-14.8); White Blood Cell Count 10.2 X10^3/uL (4.5-11.0)
[2023-10-09 05:51] LABS: Macrocytosis 2+
[2023-10-09 05:52] LABS: Anisocytosis 1+
[2023-10-09] MEDS: chlordiazePOXIDE 25 MG CAPSULE PO (07:58)
[2023-10-09] MEDS: FOLIC ACID 1 MG TABLET PO (07:58)
[2023-10-09] MEDS: THIAMINE 100 MG TABLET PO (07:58)
[2023-10-09] MEDS: IBUPROFEN 400 MG TABLET 800 MG PO (07:59)
[2023-10-09] MEDS: MULTIVITAMIN 1 TABLET 1 TAB PO (07:59)
[2023-10-09 08:00] VITALS: BP 147/67; PULSE 114; RESP 18; TEMP 36.6; O2SAT 98
[2023-10-09] MEDS: levoFLOXacin 250 MG TABLET 500 MG PO (08:03)
[2023-10-09] MEDS: SODIUM CHLORIDE 0.9% FLUSH 10 ML IV (08:03)
--- NOTE | 2023-10-09 08:16 | PM.DS.1 ---
History of Present Illness History of Present Illness Chief complaint: Dr kaba for alcohol addiction Narrative: 43 y/o with longstanding alcoholism, presented to ED with Lt leg swelling and bloated abdomen. That appeared and got worse in the past few weeks.She went through several detoxes in the past, some of which in ICU. On presentation anxious, tachycardic, slightly better after phenobarb but withdrawing with alcohol level of ~ 40. Diagnosed with alcoholic hepatits and ascites. Had paracenthesis of 1.2 L with preliminary fluid not typical for PBP. Cultures pending. Started on abx. Discharge Providers Provider Date of admission: 10/07/23 04:39 Discharge Date: 10/09/23 Primary care physician: Guillermo Espinoza MD Consults: 10/06/23 23:21 Consult to ACCOUNTS PAYABLE REPRESENTATIVE - Finish Specialist Stat Comment: ACCOUNTS PAYABLE REPRESENTATIVE Consult needed for:: Substance Abuse Assess 10/07/23 04:48 Consult to Dietitian, Adult Routine Comment: Reason For Exam: alcoholic Discharge provider: Gopi Henderson, DO Exam Vital Signs (past 8 hours): - 10/09/23 04:00 Temperature 97.6 F Pulse Rate 93 H Respiratory Rate 17 Blood Pressure 138/79 Pulse Oximetry 97 Oxygen Flow Rate 0 Oxygen Delivery Method Room Air Oxygen Flow Rate 0 Objective Labs 10/09/23 03:55 10/09/23 03:55 Labs: Laboratory Results - last 24 hr 10/08/23 10/09/23 04:00 03:55 WBC 10.2 RBC 2.66 L Hgb 10.2 L Hct 30.6 L MCV 115.1 H MCH 38.6 H MCHC 33.5 RDW 18.5 H Plt Count 197 Neut % (Auto) 79.1 H Lymph % (Auto) 14.2 L [place] % (Auto) 5.6 Eos % (Auto) 0.7 L Baso % (Auto) 0.4 Neut # (Auto) 8100 H Lymph # (Auto) 1500 [place] # (Auto) 600 Eos # (Auto) 100 Baso # (Auto) 0 RBC Morphology See below Anisocytosis 1+ H Macrocytosis 2+ H PT 18.2 H INR 1.6 H Sodium 135 L Potassium 3.6 Chloride 103 Carbon Dioxide 26 BUN 13 Creatinine 0.49 L Estimated GFR > 60 BUN/Creatinine Ratio 26.5 H Glucose 102 H Calcium 7.8 L Total Bilirubin 3.0 H AST 114 H ALT 66 H Alkaline Phosphatase 361 H Total Protein 6.5 Albumin 2.5 L Globulin 4.0 Albumin/Globulin Ratio 0.6 L Vitamin B12 936 H Folate 3.1 PFSH Medical History (Updated 10/07/23 @ 07:38 by Cam Kirk MD) Alcoholic hepatitis Chicken pox (~1983) Social History household members: significant other, family and children Smoking Status: Former smoker Discharge Plan Discharge Plan Patient Disposition: Home Provider Discharge Comment: You were admitted for alcohol withdrawals and alcoholic hepatitis. This was treated with benzos and steroids. You also had belly pain and found to have colitis from E. coli in your gut and fluid in your abdomen. The ED pulled off the fluid and it was tested negative for infection. The E. coli colitis is treated with supportive care only. Discharge orders & Medications Prescriptions: New levofloxacin 500 mg tablet 500 mg PO DAILY 2 Days Qty: 2 0RF Rx Instructions: start on 10/10 chlordiazepoxide HCl 25 mg capsule See Rx Instructions .ROUTE .COMPLEX Qty: 6 0RF Rx Instructions: 25 mg orally 3 times daily for 1 day, then 25mg twice daily for 1 day, then 25mg once daily for 1 day then stop prednisone 20 mg tablet 40 mg PO DAILY 25 Days Qty: 50 0RF Rx Instructions: start on 10/10 Continued albuterol sulfate 90 mcg/actuation HFA aerosol inhaler 2 puff inhalation Q4-6H PRN (Reason: shortness of breath or wheezing) Qty: 8.5 2RF Rx Instructions: 1-2 PUFFS BY MOUTH EVERY 4 TO 6 HOURS NEEDED. methocarbamol 750 mg tablet 750 mg PO TID Qty: 30 0RF Discontinued naltrexone 50 mg tablet 50 mg PO DAILY Qty: 90 0RF Follow up/Referrals: Guillermo Espinoza MD [Primary Care Provider] - 2 Weeks Visit Report/Discharge Packet Stand Alone Forms: Patient Portal/API, Stroke Signs & Symptoms Discharge Data Primary Care Provider: Guillermo Espinoza Quality VTE Deep Vein Thrombosis/Pulmonary Embolism Present on Admission: No
--- NOTE | 2023-10-09 09:46 | PC.NURSE ---
0944--pt discharged home via private vehicle; written and verbal discharge instructions given to pt; questions answered; she prefers to call and make her follow-up appt; iv removed intact; all belongings sent w/ pt; jacqueline boarding pass given to pt
== END 2023-10-09 09:44 | disposition home or self-care (01) | DRG 775 ==
LOC: ED 10-07 04:39 → AC 10-07 04:40 → ICU 10-07 05:18
PROVIDERS: Student in an Organized Health Care Education/Training Program; Admitting Provider Internal Medicine; Emergency Provider Emergency Medicine; Family Provider Family Medicine; PCP Family Medicine; Referring Provider Emergency Medicine; Visit Provider Internal Medicine
DX: F10.239 Alcohol dependence with withdrawal, unspecified (principal); K70.11 Alcoholic hepatitis with ascites; A04.4 Other intestinal Escherichia coli infections; Y90.2 Blood alcohol level of 40-59 mg/100 ml; Z87.891 Personal history of nicotine dependence
CPT/HCPCS: 36415; 49082; 74177; 76705; 80048; 80053; 80074; 80076; 80305; 80320; 80329; 82607; 82746; 83605; 83690; 83735; 84145; 84703; 85025; 85610; 85730; 87040; 87070; 87075; 87205; 87507; 87797; 89051; 93971; 96374; 99284; 99285; G0480; J0696; J2060; J2560; J2920; J2930; Q9967

== ENCOUNTER 2023-10-13 18:35 | Inpatient (IN) | payer OTHER, MEDICAID, SELFPAY ==
[2023-10-07 06:16] VITALS: BMI 35.1
[2023-10-13] VITALS (17 sets, daily range): BP systolic 99–133; BP diastolic 54–73; PULSE 119–153; RESP 19–34; TEMP 37.1–37.9; O2SAT 91–99; BMI 40.1
--- NOTE | 2023-10-13 18:55 | DI.RAD.S_ITS ---
PROCEDURE: XR CHEST 1V INDICATIONS: fever TECHNIQUE: One view of the chest was acquired. COMPARISON: None. FINDINGS: Surgical changes and devices: None. Lungs and pleura: There is blunting of right costophrenic angle suggestive of trace right pleural effusion. Ill-defined airspace opacities at bilateral lung bases are seen. No pneumothorax. Mediastinum: Mediastinal contours appear normal. Heart size is normal. Bones and chest wall: No suspicious bony lesions. Overlying soft tissues appear unremarkable. IMPRESSION: Finding is concerning for trace right pleural effusion and small bibasilar infiltrate versus atelectasis. No pneumothorax. Dictated by: Jose Flores M.D. on 10/13/2023 at 19:09 Approved by: Jose Flores M.D. on 10/13/2023 at 19:09
--- NOTE | 2023-10-13 19:06 | DI.US.S_ITS ---
PROCEDURE: US ABDOMEN LIMITED INDICATIONS: ASCITES AND FEVER. AMANDA FOR PARACENTESIS TECHNIQUE: Real-time focused scanning was performed of the abdomen, with image documentation. COMPARISON: [facility], CT, CT ABDOMEN PELVIS W CON, 10/13/2023, 19:35. [facility], US, US ABDOMEN LIMITED, 10/06/2023, 22:42. FINDINGS: Moderate ascites is seen with largest pocket in the right lower quadrant. An appropriate site for paracentesis was marked by the visual display associate with the ordering provider at bedside. IMPRESSION: Moderate ascites. A site was marked for paracentesis at the right lower quadrant. Approved by: Pedro Mtz M.D. on 10/13/2023 at 23:38
--- NOTE | 2023-10-13 19:09 | ED_ITS ---
HPI - Abdominal Pain General Chief Complaint: Abdominal Pain Stated Complaint: ascites; high HR Time Seen by Provider: 10/13/23 18:53 Source: patient and EMS Mode of arrival: EMS History of Present Illness HPI narrative: Patient is a 43-year-old history of alcoholic hepatitis, recently admitted to hospital discharged on the , diagnosis alcoholic hepatitis with alcohol withdrawal she was treated with benzos and steroids she was found to have colitis from E coli and treated with Levaquin. She was discharged home with 2 more doses of Levaquin. Today she presents with fever and tachycardia heart rate in the 150s. She went to her primary around the [facility] she did not feel very well. There are reports of left leg swelling she has bloating across her abdomen and has a temperature of 100.3?. She denies any chest pain or dizziness. She says her abdomen feels like it did a week ago. She would paracentesis in the ED where they removed 1.2 L he feels like it needs to be drained again. She denies any nausea vomiting, numbness tingling weakness. Related Data Previous Rx's Medication Instructions Recorded albuterol sulfate 90 mcg/actuation 2 puff inhalation Q4-6H PRN 08/27/23 aerosol inhaler shortness of breath or wheezing #8.5 grams chlordiazepoxide HCl 25 mg capsule See Rx Instructions .Route 10/09/23 .COMPLEX #6 caps methocarbamol 750 mg tablet 750 mg PO TID #90 tabs 10/09/23 prednisone 20 mg tablet 40 mg (2 x 20 mg) PO DAILY 25 days 10/09/23 #50 tabs spironolactone 25 mg tablet 25 mg PO DAILY #30 tabs 10/13/23 torsemide 20 mg tablet 20 mg PO DAILY #30 tabs 10/13/23 Allergies Allergy/AdvReac Type Severity Reaction Status Date / Time Penicillins Allergy Intermediate Rash Verified 10/13/23 14:32 ceftriaxone [From Rocephin] AdvReac Intermediate Verified 10/13/23 14:32 hydrocodone AdvReac Unknown Verified 10/13/23 14:32 Patient History Medical History Alcoholic hepatitis Chicken pox (~1983) Social History household members: significant other, family and children Smoking Status: Former smoker Smoking Status: Former smoker alcohol intake frequency: 3 or more drinks per day Alcohol type: hard liquor Substance Use Type: marijuana Exam Initial Vital Signs Initial Vital Signs: Vital Signs Temperature 100.3 F H 10/13/23 18:40 Pulse Rate 146 H 10/13/23 18:40 Respiratory Rate 25 H 10/13/23 18:40 Blood Pressure 128/66 10/13/23 18:40 Pulse Oximetry 97 10/13/23 18:40 Oxygen Delivery Method Room Air 10/13/23 18:40 GENERAL: Alert 43-year-old female appears to not feel well HEENT: Head atraumatic,EOMI, pupils reactive, face symmetric, moist mucous membranes CARDIOVASCULAR: Tachycardic regular no murmur RESPIRATORY: Breath sounds equal bilaterally, no wheezes rales or rhonchi. ABDOMEN: Mild distention pain across lower abdomen more left than right : No CVA tenderness EXTREMITIES: Normal range of motion, no clubbing or edema. Neurovascularly intact NEUROLOGICAL: Alert and oriented x4.Normal gait and speech. Cranial nerves II through XII grossly intact. SKIN: Warm, dry, no laceration, no petechiae, no rashes or lesions. Procedures Paracentesis Indication: Ascites and possible spontaneous bacterial peritonitis Procedure: therapeutic paracentesis and diagnostic paracentesis Local Anesthetic: lidocaine 1% Amount of anesthesia used (mL): 2 Preparation: sterile prep and drape and Blade used to make león in skin Fluid: cloudy Post Procedure Exam: awake, alert, normal BP and normal HR Patient Tolerated Procedure: Well and No complications Complications: none Course Orders Ordered: ED Orders 10/13/23 18:50 Complete Blood Count AUTO DIFF Stat Comprehensive Metabolic Panel Stat D Dimer Stat Lactate (Lactic Acid) Stat Procalcitonin Stat Prothrombin Time INR Stat Troponin & CK Cardiac Panel Stat 10/13/23 18:55 XR chest 1V Stat 10/13/23 19:00 Urinalysis and Microscopic Stat Urine Culture Stat 10/13/23 19:06 US abdomen limited Stat 10/13/23 19:23 CT abdomen pelvis w con Stat CT angio chest PE protocol Stat 10/13/23 19:27 Respiratory Panel (Film Array) Stat 10/13/23 20:25 Blood Culture Stat 10/13/23 21:20 Body Fluid Culture Stat Cell Count w Diff Body Fluid Stat Albuterol (Albuterol 2.5 Mg/3 Ml Neb (Adult)) 2.5 mg INH RTQ4HR PRN PRN Reason: Shortness Of Breath Or Wheezing Calcium Carbonate (Calcium Carbonate 500 Mg Tab) 1,000 mg PO Q4HR PRN PRN Reason: Dyspepsia Chlordiazepoxide HCl (Chlordiazepoxide 25 Mg Capsule) 0 mg PO .COMPLEX GUS Meropenem 500 mg/ Sodium (Chloride) 100 mls @ 200 mls/hr IV Q8HR GUS Ibuprofen (Ibuprofen 400 Mg Tablet) 400 mg PO Q4H PRN PRN Reason: Pain, Mild (1-3) Melatonin (Melatonin 3 Mg Tablet) 9 mg PO BEDTIME PRN PRN Reason: insomnia Last Admin: 10/14/23 00:54 Dose: 9 mg Documented By: AT Methocarbamol (Methocarbamol 500 Mg Tablet) 750 mg PO TID GUS Naloxone HCl (Naloxone 0.4 Mg/Ml Vial) 0.2 mg IV Q2MIN PRN PRN Reason: Opiate Reversal Ondansetron HCl (Ondansetron 4 Mg/2 Ml Inj) 4 mg IV Q8HR PRN PRN Reason: Nausea And Vomiting Oxycodone HCl (Oxycodone Ir 5 Mg Tablet) 5 mg PO Q3H PRN PRN Reason: Pain, Moderate (4-6) Prednisone (Prednisone 20 Mg Tablet) 40 mg PO DAILY GUS Promethazine HCl (Promethazine 12.5 Mg Supp) 12.5 mg RI Q6HR PRN PRN Reason: Nausea And Vomiting Spironolactone (Spironolactone 25 Mg Tablet) 25 mg PO DAILY GUS Torsemide (Torsemide 10 Mg Tablet) 20 mg PO DAILY GUS Discontinued Medications Sodium Chloride (Normal Saline 0.9%) 3,388.35 mls @ 1,129.45 mls/hr 30 ml/kg infuse over 3 hr (3388.35 ml) IV NOW ONE Stop: 10/13/23 21:54 Last Admin: 10/13/23 21:55 Dose: Not Given Documented By: SB Sodium Chloride (Normal Saline 0.9%) 1,000 mls @ 1,000 mls/hr IV BOLUS ONE Stop: 10/13/23 20:09 Last Infusion: 10/13/23 20:42 Dose: Infused Documented By: Admin: 10/13/23 19:12 Dose: 1,000 mls/hr Documented By: SPF Sodium Chloride (Normal Saline 0.9%) 1,000 mls @ 1,000 mls/hr IV BOLUS ONE Stop: 10/13/23 21:41 Last Infusion: 10/13/23 21:55 Dose: Infused Documented By: Admin: 10/13/23 20:44 Dose: 1,000 mls/hr Documented By: SB Ceftriaxone Sodium 2,000 mg/ (Sodium Chloride) 100 mls @ 200 mls/hr IV NOW ONE Stop: 10/13/23 21:28 Last Admin: 10/13/23 22:41 Dose: Not Given Documented By: SB Sodium Chloride (Normal Saline 0.9%) 1,000 mls @ 1,000 mls/hr IV BOLUS ONE Stop: 10/13/23 22:42 Last Admin: 10/13/23 21:56 Dose: 1,000 mls/hr Documented By: SB Meropenem 1,000 mg/ Sodium (Chloride) 100 mls @ 200 mls/hr IV NOW ONE Stop: 10/13/23 22:23 Last Infusion: 10/13/23 23:25 Dose: Infused Documented By: Admin: 10/13/23 22:49 Dose: 200 mls/hr Documented By: SB Vancomycin HCl/Dextrose (Vancomycin) 1,500 mg in 300 mls @ 200 mls/hr IV NOW ONE Stop: 10/13/23 23:51 Last Admin: 10/14/23 00:54 Dose: 200 mls/hr Documented By: AT Ketorolac Tromethamine (Ketorolac 30 Mg/Ml Vial) 15 mg IV NOW ONE Stop: 10/13/23 19:24 Last Admin: 10/13/23 19:33 Dose: 15 mg Documented By: SB Lorazepam (Lorazepam 2 Mg/Ml Inj) 0.5 mg IV NOW ONE Stop: 10/14/23 00:32 Last Admin: 10/14/23 01:54 Dose: Not Given Documented By: AT Vital Signs Vital signs: Vital Signs - 8 hr 10/13/23 19:02 10/13/23 19:11 10/13/23 19:11 Pulse Rate 153 H 144 H Respiratory Rate 33 H 34 H Blood Pressure 130/72 Pulse Oximetry 91 98 Oxygen Delivery Method Room Air 10/13/23 19:30 10/13/23 19:30 10/13/23 20:00 Pulse Rate 138 H 137 H Respiratory Rate 30 H 30 H Blood Pressure 131/73 Pulse Oximetry 97 98 Oxygen Delivery Method 10/13/23 20:10 10/13/23 20:10 10/13/23 20:30 Pulse Rate 138 H 137 H Respiratory Rate 31 H 28 H Blood Pressure 133/62 Pulse Oximetry Oxygen Delivery Method 10/13/23 20:33 10/13/23 20:33 10/13/23 21:00 Pulse Rate 138 H 137 H Respiratory Rate 28 H 32 H Blood Pressure 118/68 Pulse Oximetry 98 98 Oxygen Delivery Method Room Air 10/13/23 21:00 10/13/23 21:30 10/13/23 21:30 Pulse Rate 132 H Respiratory Rate 26 H Blood Pressure 123/67 113/59 L Pulse Oximetry 97 Oxygen Delivery Method 10/13/23 21:45 10/13/23 21:45 10/13/23 22:00 Pulse Rate 125 H Respiratory Rate 26 H Blood Pressure 111/58 L 109/59 L Pulse Oximetry 97 Oxygen Delivery Method Room Air 10/13/23 22:00 10/13/23 22:15 10/13/23 22:15 Pulse Rate 126 H 123 H Respiratory Rate 25 H 26 H Blood Pressure 112/60 Pulse Oximetry 97 99 Oxygen Delivery Method 10/13/23 22:30 10/13/23 22:30 10/13/23 22:45 Pulse Rate 124 H Respiratory Rate 30 H Blood Pressure 108/58 L 106/57 L Pulse Oximetry 95 Oxygen Delivery Method 10/13/23 22:45 Pulse Rate 121 H Respiratory Rate 30 H Blood Pressure Pulse Oximetry 95 Oxygen Delivery Method MDM - Abdominal Pain Lab Data 10/13/23 18:50 10/13/23 18:50 Labs: Lab Results 10/13/23 10/13/23 10/13/23 Range/Units 18:50 19:00 19:27 WBC 16.0 H (4.5-11.0) X10^3/uL RBC 3.14 L (4.0-5.2) X10^6/uL Hgb 12.2 (12.0-16.0) g/dL Hct 35.9 L (36-46) % MCV 114.4 H (80-100) fL MCH 38.8 H (26-34) PG MCHC 34.0 (30-36) % RDW 18.7 H (11.6-14.8) % Plt Count 285 (150-400) X10^3/uL Neut % (Auto) 77.2 H (50-75) % Lymph % (Auto) 13.3 L (25-40) % [place] % (Auto) 6.9 (3-14) % Eos % (Auto) 2.0 (2-4) % Baso % (Auto) 0.6 (0-2) % Neut # (Auto) 96998 H (9351-0126) /uL Lymph # (Auto) 2100 (4607-6916) /uL [place] # (Auto) 1100 H (0-900) /uL Eos # (Auto) 300 (0-450) /uL Baso # (Auto) 100 (0-100) /uL RBC Morphology See below Anisocytosis 1+ H Macrocytosis 1+ H Target Cells 1+ H PT 15.0 H (9.4-12.5) SECONDS INR 1.3 (0.9-1.3) D-Dimer 1640 H (<500) ng/ml Sodium 136 L (137-145) mmol/L Potassium 4.6 (3.4-5.1) mmol/L Chloride 103 (98-107) mmol/L Carbon Dioxide 27 (22-32) mmol/L BUN 15 (7-17) mg/dL Creatinine 0.52 (0.52-1.04) mg/dL Estimated GFR > 60 (>60) mL/min BUN/Creatinine Ratio 28.8 H (6-22) Glucose 117 H (70-100) mg/dL Lactate 2.1 (0.7-2.1) mmol/L Calcium 9.2 (8.4-10.2) mg/dL Total Bilirubin 3.2 H (0.2-1.3) mg/dL AST 195 H (14-36) IU/L ALT 73 H (<35) IU/L Alkaline Phosphatase 258 H (38-126) U/L Total Creatine Kinase < 20 L (30-135) U/L Troponin I < 0.012 (0.01-0.034) ng/mL Total Protein 7.3 (6.3-8.2) g/dL Albumin 3.1 L (3.5-5.0) g/dL Globulin 4.2 H (1.7-4.1) g/dL Albumin/Globulin Ratio 0.7 L (1.0-2.8) Procalcitonin 0.31 (<0.5) ng/mL Urine Color Yellow Urine Appearance Sl cloudy Urine pH 6.5 (4.5-8.0) Ur Specific [place] 1.020 (1.000-1.035) Urine Protein 1+ H (Negative) Urine Glucose (UA) Negative (Negative) g/dL Urine Ketones Trace H (NEGATIVE) Urine Occult Blood Negative (Negative) Urine Nitrate Positive H (Negative) Urine Bilirubin 2+ H (NEGATIVE) Ur Bilirubin Confirm Cancelled Urine Urobilinogen 1.0 (0.2) E.U./dL Ur Leukocyte Esterase 2+ H (NEGATIVE) Urine RBC None seen (0-5/HPF) Urine WBC 5-10/hpf H (0-5/HPF) Ur Squamous Epith Cells 1-5 /hpf (0-5/HPF) Urine Bacteria Moderate (10-30) H (None) Ur Culture Indicated? Specimen cultured Fluid Color Fluid Appearance Fluid RBC /uL Fld Tot Nucleated Cell /uL Fluid Polynuclear WBCs % Fluid Mononuclear WBCs % Fluid Eosinophils Fluid Other Cells Body Fluid Clot Chlamy pneumoniae PCR Not detected (Not Detect) Adenovirus (PCR) Not detected (Not Detect) B.parapertussis DNA PCR Not detected (Not Detecte) Coronavirus OC43 (PCR) Not detected (Not Detect) Coronavirus HKU1 (PCR) Not detected (Not Detect) Coronavirus 229E (PCR) Not detected (Not Detect) SARS-CoV-2 (PCR) Not detected (Not Detecte) Coronavirus NL63 (PCR) Not detected (Not Detect) Human Metapneumovir PCR Not detected (Not Detect) Influenza Type A (PCR) Not detected (Not Detect) Influenza Type B (PCR) Not detected (Not Detect) M. pneumoniae (PCR) Not detected (Not Detect) Parainfluenza 1 (PCR) Not detected (Not Detect) Parainfluenza 2 (PCR) Not detected (Not Detect) Parainfluenza 3 (PCR) Not detected (Not Detect) Parainfluenza 4 (PCR) Not detected (Not Detect) RSV (PCR) Not detected (Not Detect) Entero/Rhino (PCR) Not detected (Not Detect) 10/13/23 10/13/23 Range/Units 21:20 21:30 WBC (4.5-11.0) X10^3/uL RBC (4.0-5.2) X10^6/uL Hgb (12.0-16.0) g/dL Hct (36-46) % MCV (80-100) fL MCH (26-34) PG MCHC (30-36) % RDW (11.6-14.8) % Plt Count (150-400) X10^3/uL Neut % (Auto) (50-75) % Lymph % (Auto) (25-40) % [place] % (Auto) (3-14) % Eos % (Auto) (2-4) % Baso % (Auto) (0-2) % Neut # (Auto) (7753-4412) /uL Lymph # (Auto) (4272-0528) /uL [place] # (Auto) (0-900) /uL Eos # (Auto) (0-450) /uL Baso # (Auto) (0-100) /uL RBC Morphology Anisocytosis Macrocytosis Target Cells PT (9.4-12.5) SECONDS INR (0.9-1.3) D-Dimer (<500) ng/ml Sodium (137-145) mmol/L Potassium (3.4-5.1) mmol/L Chloride (98-107) mmol/L Carbon Dioxide (22-32) mmol/L BUN (7-17) mg/dL Creatinine (0.52-1.04) mg/dL Estimated GFR (>60) mL/min BUN/Creatinine Ratio (6-22) Glucose (70-100) mg/dL Lactate 1.8 (0.7-2.1) mmol/L Calcium (8.4-10.2) mg/dL Total Bilirubin (0.2-1.3) mg/dL AST (14-36) IU/L ALT (<35) IU/L Alkaline Phosphatase (38-126) U/L Total Creatine Kinase (30-135) U/L Troponin I (0.01-0.034) ng/mL Total Protein (6.3-8.2) g/dL Albumin (3.5-5.0) g/dL Globulin (1.7-4.1) g/dL Albumin/Globulin Ratio (1.0-2.8) Procalcitonin (<0.5) ng/mL Urine Color Urine Appearance Urine pH (4.5-8.0) Ur Specific [place] (1.000-1.035) Urine Protein (Negative) Urine Glucose (UA) (Negative) g/dL Urine Ketones (NEGATIVE) Urine Occult Blood (Negative) Urine Nitrate (Negative) Urine Bilirubin (NEGATIVE) Ur Bilirubin Confirm Urine Urobilinogen (0.2) E.U./dL Ur Leukocyte Esterase (NEGATIVE) Urine RBC (0-5/HPF) Urine WBC (0-5/HPF) Ur Squamous Epith Cells (0-5/HPF) Urine Bacteria (None) Ur Culture Indicated? Fluid Color Yellow Fluid Appearance Hazy Fluid RBC < 1000 /uL Fld Tot Nucleated Cell 68 /uL Fluid Polynuclear WBCs 10 % Fluid Mononuclear WBCs 90 % Fluid Eosinophils Not Reportable Fluid Other Cells Not Reportable Body Fluid Clot No clots present Chlamy pneumoniae PCR (Not Detect) Adenovirus (PCR) (Not Detect) B.parapertussis DNA PCR (Not Detecte) Coronavirus OC43 (PCR) (Not Detect) Coronavirus HKU1 (PCR) (Not Detect) Coronavirus 229E (PCR) (Not Detect) SARS-CoV-2 (PCR) (Not Detecte) Coronavirus NL63 (PCR) (Not Detect) Human Metapneumovir PCR (Not Detect) Influenza Type A (PCR) (Not Detect) Influenza Type B (PCR) (Not Detect) M. pneumoniae (PCR) (Not Detect) Parainfluenza 1 (PCR) (Not Detect) Parainfluenza 2 (PCR) (Not Detect) Parainfluenza 3 (PCR) (Not Detect) Parainfluenza 4 (PCR) (Not Detect) RSV (PCR) (Not Detect) Entero/Rhino (PCR) (Not Detect) Imaging Data CT scan - abdomen/pelvis: Radiologist's Impression: PROCEDURE: CT ABDOMEN PELVIS W CON INDICATIONS: pain fever ascites TECHNIQUE: After the administration of intravenous contrast, axial sections acquired from the lung bases to the pubic symphysis. Coronal and sagittal reformats were performed. For radiation dose reduction, the following was used: automated exposure control, adjustment of mA and/or kV according to patient size. COMPARISON: [facility], CT, CT ABDOMEN PELVIS W CON, 10/07/2023, 3:20. FINDINGS: Image quality: Excellent. Lung bases: Trace pleural effusions with atelectasis of the lung bases. Heart: Mild cardiomegaly. ABDOMEN: Liver: Liver is enlarged and hypoattenuating, consistent with fatty infiltration. Liver surface appears notably nodular, which is suspicious for cirrhosis. Previously seen hypodensity in segment 4 is not definitely reproduced on the current exam. Gallbladder: No radiopaque gallstones. Biliary ducts: Unremarkable. Pancreas: Unremarkable. Spleen: Spleen is enlarged, measuring up to 15.1 cm in craniocaudal dimension. Adrenal Glands: Unremarkable. Kidneys and Ureters: Unremarkable. Stomach and Bowel: Previously seen bowel wall thickening in the colon has nearly completely resolved with possible trace thickening of the hepatic flexure and in the left lower quadrant. Normal appendix. Small bowel loops and stomach are unremarkable. Colonic diverticulosis without signs of acute diverticulitis. Peritoneum: Small to moderate volume of ascites throughout the abdomen and pelvis. No pneumoperitoneum. Ventral Wall: Mild diffuse soft tissue anasarca. Abdominal Nodes: No retroperitoneal or mesenteric adenopathy by size criteria. Vessels: Aorta and inferior vena cava are normal in size. Small para soft DARRIUS recedes. PELVIS: Pelvic Organs: Unremarkable. Bladder: Unremarkable. Pelvic Nodes: No enlarged lymph nodes. Miscellaneous: No hernias are seen. Bones: Unremarkable. IMPRESSION: 1. Bowel wall thickening in the colon has significantly decreased when compared to the CT from 10/07/2023, with mild residual edema at the hepatic flexure and left lower distal descending colon. 2. Hepatomegaly and diffuse hepatic steatosis. Mild nodularity of the liver surface is suspicious for cirrhosis. Previously seen segment IV hypodensity is not reproduced on the current exam. 3. Signs of portal hypertension including a moderate volume of ascites, moderate splenomegaly, and small paraesophageal varices. Ascites has increased when compared to the exam from 10/07/2023. 4. Mild diffuse soft tissue anasarca. Trace bilateral pleural effusions. CT scan - chest: Radiologist's Impression: PROCEDURE: CT ANGIO CHEST PE PROTOCOL INDICATIONS: high dimer TECHNIQUE: After the administration of intravenous contrast, 2 mm thick sections acquired from the pulmonary apices to the posterior costophrenic angles. 3-dimensional maximum intensity projection (MIP) coronal and sagittal reformats were then acquired through the thorax. For radiation dose reduction, the following was used: automated exposure control, adjustment of mA and/or kV according to patient size. COMPARISON: [facility], CR, XR CHEST 1V, 10/13/2023, 18:59. FINDINGS: Image quality: Time of the contrast bolus is suboptimal for opacification of the pulmonary arteries, and the more distal pulmonary arteries are not well evaluated. Pulmonary arteries: Pulmonary arteries are normal in size. No intraluminal filling defects to suggest central pulmonary embolism. And the peripheral segmental and subsegmental pulmonary arteries are not well evaluated due to the timing of the contrast bolus. Lungs and pleura: Atelectasis is seen in the lung bases, likely due to respiratory motion is present. No definite acute consolidation or suspicious nodule. Trace bilateral pleural effusions. No pneumothorax. Central and peripheral airways are patent. Mediastinum: Heart size is mildly enlarged, without pericardial effusion. No mediastinal or hilar adenopathy. Thoracic aorta is normal in caliber and enhancement. Esophagus is normal in caliber, without hiatal hernia. Bones and chest wall: No suspicious bony lesions. Ribs and thoracic spine appear intact throughout. No axillary or supraclavicular adenopathy. No thyroid nodules which require sonographic follow up, per consensus guidelines. Upper Abdomen: Liver is enlarged and diffusely hypoattenuating, consistent with fatty infiltration. Small amount of upper abdominal ascites. Suspected splenomegaly. Please see the separate report from the CT of the abdomen and pelvis performed the same time for detailed abdominal findings. IMPRESSION: 1. No acute pulmonary embolus, however evaluation of the more distal peripheral pulmonary arteries is suboptimal due to the timing of the contrast bolus. 2. Bilateral atelectasis and low lung volumes, likely related to imaging during expiration. 3. Trace bilateral pleural effusions. 4. Mild cardiomegaly. Approved by: Pedro Mtz M.D. on 10/13/2023 at 20:19 US - abdomen: Radiologist's Impression: PROCEDURE: US ABDOMEN LIMITED INDICATIONS: ASCITES AND FEVER. AMANDA FOR PARACENTESIS TECHNIQUE: Real-time focused scanning was performed of the abdomen, with image documentation. COMPARISON: [facility], CT, CT ABDOMEN PELVIS W CON, 10/13/2023, 19:35. [facility], US, US ABDOMEN LIMITED, 10/06/2023, 22:42. FINDINGS: Moderate ascites is seen with largest pocket in the right lower quadrant. An appropriate site for paracentesis was marked by the orthodontic laboratory technician with the ordering provider at bedside. IMPRESSION: Moderate ascites. A site was marked for paracentesis at the right lower quadrant. Approved by: Pedro Mtz M.D. on 10/13/2023 at 23:38 ECG Data Interpretation: Sinus tachycardia rate 147 RI interval 188 QRS [address] changes no priors to compare MDM Narrative Medical decision making narrative: Patient 43-year-old female presents today with significant tachycardia heart rate in the 150s low-grade temperature of 100.3? with recent admission presenting today with abdominal pain. Initial concern possible as BP. However CT from last admission showed colitis she was discharged home on Levaquin. She says she took her antibiotics. She just says she does not feel very well. Blood work reviewed leukocytosis 16 no anemia, no JUS electrolyte abnormality lactate 2.1 which improved to 1.8, stable liver enzymes bilirubin at 3.2 previously 3.0 AST 195 ALC 73 alk-phos 258, procalcitonin 0.31 urinalysis is positive for nitrates and leukocytes specimen is cultured She had nitrates in her urine September 24 she reports that she had a UTI at that time it was not cultured. Paracentesis was done to rule out SBP with fever and increased abdominal pain. Removed 4.7 L. It slightly cloudy but neutrophils are less than 250 not consistent with SBP. CT showed improvement in her colitis which was seen previously. CT angio was done for tachycardia recent admission an elevated D-dimer, he does not have a pulmonary embolism. No evidence of pneumonia. I suspect source of infection is UTI. She has multiple allergies to medications including Rocephin and penicillin she just finished Levaquin. She is given Meropenem Patient's heart rate was steady in the 130s however after the paracentesis finally decreased into the 120s. She feels much better. Dr. Galarza, accepts patient Critical Care Time Critical Care Time Critical Care Time: Yes Total Critical Care Time: 45 Attestation: The high probability of a clinically significant, sudden or life threatening deterioration of the [cardiovascular] system(s) required my full and direct attention, intervention and personal management. The aggregate critical care time was [45] minutes. This time is in addition to time spent performing reported procedures but includes the following: [x] Data Review and interpretation [x] Patient assessment and monitoring of vital signs [x] Documentation [x] Medication orders and management Discharge Plan Departure Patient Disposition: Admitted As Inpatient Clinical Impression: Urinary tract infection, Ascites, Sepsis Admit Date/Time: 10/13/23 22:45 Admit Provider: Uriel Galarza
[2023-10-13 19:10] LABS: INR 1.3 (0.9-1.3)
[2023-10-13 19:12] LABS: D Dimer 1640 ng/ml (<500)
[2023-10-13] MEDS: SODIUM CHLORIDE 0.9% 1,000 ML 1000 ML IV ×3 (19:12→21:56)
[2023-10-13 19:14] LABS: Alanine Aminotransferase 73 IU/L (<35); Albumin 3.1 g/dL (3.5-5.0); Albumin Globulin Ratio 0.7 (1.0-2.8); Alkaline Phosphatase 258 U/L (38-126); Aspartate Aminotransferase 195 IU/L (14-36); BUN Creatinine Ratio 28.8 (6-22); Bilirubin Total 3.2 mg/dL (0.2-1.3); Blood Urea Nitrogen 15 mg/dL (7-17); Calcium 9.2 mg/dL (8.4-10.2); Carbon Dioxide 27 mmol/L (22-32); Chloride 103 mmol/L (98-107); Creatine Kinase < 20 U/L (30-135); Estimated Glomerular Filt Rate > 60 mL/min (>60); Globulin 4.2 g/dL (1.7-4.1); Glucose 117 mg/dL (70-100); HEMOLYSIS < 15 (0-50); Lactate (Lactic Acid) 2.1 mmol/L (0.7-2.1); Potassium 4.6 mmol/L (3.4-5.1); Sodium 136 mmol/L (137-145); Total Protein 7.3 g/dL (6.3-8.2)
--- NOTE | 2023-10-13 19:23 | DI.CT.S_ITS ---
PROCEDURE: CT ANGIO CHEST PE PROTOCOL INDICATIONS: high dimer TECHNIQUE: After the administration of intravenous contrast, 2 mm thick sections acquired from the pulmonary apices to the posterior costophrenic angles. 3-dimensional maximum intensity projection (MIP) coronal and sagittal reformats were then acquired through the thorax. For radiation dose reduction, the following was used: automated exposure control, adjustment of mA and/or kV according to patient size. COMPARISON: [facility], , XR CHEST 1V, 10/13/2023, 18:59. FINDINGS: Image quality: Time of the contrast bolus is suboptimal for opacification of the pulmonary arteries, and the more distal pulmonary arteries are not well evaluated. Pulmonary arteries: Pulmonary arteries are normal in size. No intraluminal filling defects to suggest central pulmonary embolism. And the peripheral segmental and subsegmental pulmonary arteries are not well evaluated due to the timing of the contrast bolus. Lungs and pleura: Atelectasis is seen in the lung bases, likely due to respiratory motion is present. No definite acute consolidation or suspicious nodule. Trace bilateral pleural effusions. No pneumothorax. Central and peripheral airways are patent. Mediastinum: Heart size is mildly enlarged, without pericardial effusion. No mediastinal or hilar adenopathy. Thoracic aorta is normal in caliber and enhancement. Esophagus is normal in caliber, without hiatal hernia. Bones and chest wall: No suspicious bony lesions. Ribs and thoracic spine appear intact throughout. No axillary or supraclavicular adenopathy. No thyroid nodules which require sonographic follow up, per consensus guidelines. Upper Abdomen: Liver is enlarged and diffusely hypoattenuating, consistent with fatty infiltration. Small amount of upper abdominal ascites. Suspected splenomegaly. Please see the separate report from the CT of the abdomen and pelvis performed the same time for detailed abdominal findings. IMPRESSION: 1. No acute pulmonary embolus, however evaluation of the more distal peripheral pulmonary arteries is suboptimal due to the timing of the contrast bolus. 2. Bilateral atelectasis and low lung volumes, likely related to imaging during expiration. 3. Trace bilateral pleural effusions. 4. Mild cardiomegaly. Approved by: Pedro Mtz M.D. on 10/13/2023 at 20:19
--- NOTE | 2023-10-13 19:23 | DI.CT.S_ITS ---
PROCEDURE: CT ABDOMEN PELVIS W CON INDICATIONS: pain fever ascites TECHNIQUE: After the administration of intravenous contrast, axial sections acquired from the lung bases to the pubic symphysis. Coronal and sagittal reformats were performed. For radiation dose reduction, the following was used: automated exposure control, adjustment of mA and/or kV according to patient size. COMPARISON: [facility], CT, CT ABDOMEN PELVIS W CON, 10/07/2023, 3:20. FINDINGS: Image quality: Excellent. Lung bases: Trace pleural effusions with atelectasis of the lung bases. Heart: Mild cardiomegaly. ABDOMEN: Liver: Liver is enlarged and hypoattenuating, consistent with fatty infiltration. Liver surface appears notably nodular, which is suspicious for cirrhosis. Previously seen hypodensity in segment 4 is not definitely reproduced on the current exam. Gallbladder: No radiopaque gallstones. Biliary ducts: Unremarkable. Pancreas: Unremarkable. Spleen: Spleen is enlarged, measuring up to 15.1 cm in craniocaudal dimension. Adrenal Glands: Unremarkable. Kidneys and Ureters: Unremarkable. Stomach and Bowel: Previously seen bowel wall thickening in the colon has nearly completely resolved with possible trace thickening of the hepatic flexure and in the left lower quadrant. Normal appendix. Small bowel loops and stomach are unremarkable. Colonic diverticulosis without signs of acute diverticulitis. Peritoneum: Small to moderate volume of ascites throughout the abdomen and pelvis. No pneumoperitoneum. Ventral Wall: Mild diffuse soft tissue anasarca. Abdominal Nodes: No retroperitoneal or mesenteric adenopathy by size criteria. Vessels: Aorta and inferior vena cava are normal in size. Small para soft DARRIUS recedes. PELVIS: Pelvic Organs: Unremarkable. Bladder: Unremarkable. Pelvic Nodes: No enlarged lymph nodes. Miscellaneous: No hernias are seen. Bones: Unremarkable. IMPRESSION: 1. Bowel wall thickening in the colon has significantly decreased when compared to the CT from 10/07/2023, with mild residual edema at the hepatic flexure and left lower distal descending colon. 2. Hepatomegaly and diffuse hepatic steatosis. Mild nodularity of the liver surface is suspicious for cirrhosis. Previously seen segment IV hypodensity is not reproduced on the current exam. 3. Signs of portal hypertension including a moderate volume of ascites, moderate splenomegaly, and small paraesophageal varices. Ascites has increased when compared to the exam from 10/07/2023. 4. Mild diffuse soft tissue anasarca. Trace bilateral pleural effusions. Approved by: Pedro Mtz M.D. on 10/13/2023 at 20:38
[2023-10-13 19:25] LABS: Troponin I < 0.012 ng/mL (0.01-0.034)
[2023-10-13 19:30] LABS: Procalcitonin 0.31 ng/mL (<0.5)
[2023-10-13 19:30] LABS: Bilirubin Urine UA 2+ (NEGATIVE); Color Urine UA YELLOW; Glucose Urine UA NEGATIVE (Negative); Ketones Urine UA TRACE (NEGATIVE); Leukocyte Esterase Urine UA 2+ (NEGATIVE); Nitrite Urine UA POSITIVE (Negative); Occult Blood Urine UA NEGATIVE (Negative); Protein Urine UA 1+ (Negative)
[2023-10-13] MEDS: KETOROLAC 30 MG/ML VIAL 15 MG IV (19:33)
[2023-10-13 19:40] LABS: Add Manual Diff / Slide Review NO; Basophils Absolute Auto 100 /uL (0-100); Basophils Percent Auto 0.6 % (0-2); Eosinophils Absolute Auto 300 /uL (0-450); Hematocrit 35.9 % (36-46); Hemoglobin 12.2 g/dL (12.0-16.0); Lymphocytes Absolute Auto 2100 /uL (1100-4500); Lymphocytes Percent Auto 13.3 % (25-40); Mean Corpuscular Hemoglobin 38.8 PG (26-34); Mean Corpuscular Volume 114.4 fL (80-100); Monocytes Absolute Auto 1100 /uL (0-900); Monocytes Percent Auto 6.9 % (3-14); Neutrophils Absolute Auto 12400 /uL (1500-7000); Neutrophils Percent Auto 77.2 % (50-75); Platelet Count 285 X10^3/uL (150-400); Red Blood Cell Count 3.14 X10^6/uL (4.0-5.2); Red Cell Distribution Width 18.7 % (11.6-14.8)
[2023-10-13 19:41] LABS: Appearance Urine UA SL CLOUDY; pH Urine UA 6.5 (4.5-8.0)
[2023-10-13 20:13] LABS: Bacteria Urine Moderate (10-30); Culture Indicated Urine Specimen Cultured; RBC Urine None Seen (0-5/HPF); Squamous Epithelial Cell Urine 1-5 /HPF (0-5/HPF); WBC Urine 5-10/HPF (0-5/HPF)
[2023-10-13 20:13] LABS: Anisocytosis 1+
[2023-10-13 20:14] LABS: Macrocytosis 1+
[2023-10-13 20:15] LABS: Target Cells 1+
[2023-10-13 20:41] LABS: Reflexed Lactate in 2 Hours Y
[2023-10-13 22:04] LABS: Body Fluid Tot Nucleated Cells 68 /uL
[2023-10-13 22:12] LABS: Adenovirus Not Detected (Not Detect); B. parapertussis Not Detected (Not Detecte); Bordetella pertussis Not Detected (Not Detect); Chlamydophila pneumoniae Not Detected (Not Detect); Coronavirus 229E Not Detected (Not Detect); Coronavirus HKU1 Not Detected (Not Detect); Coronavirus NL 63 Not Detected (Not Detect); Coronavirus OC43 Not Detected (Not Detect); Human Metapneumovirus Not Detected (Not Detect); Human Rhinovirus/Enterovirus Not Detected (Not Detect); Influenza A Not Detected (Not Detect); Influenza B Not Detected (Not Detect); Mycoplasma pneumoniae Not Detected (Not Detect); Parainfluenza Virus 1 Not Detected (Not Detect); Parainfluenza Virus 2 Not Detected (Not Detect); Parainfluenza Virus 3 Not Detected (Not Detect); Parainfluenza Virus 4 Not Detected (Not Detect); Respiratory Syncytial Virus Not Detected (Not Detect); SARS- CoV-2 Not Detected (Not Detecte)
[2023-10-13 22:14] LABS: Body Fluid Red Blood Cells < 1000 /uL
[2023-10-13 22:36] LABS: Lactate 2HR (Lactic Acid Rflx) 1.8 mmol/L (0.7-2.1)
[2023-10-13 22:40] LABS: Body Fluid Appearance HAZY; Body Fluid Clotted? NO CLOTS PRESENT; Body Fluid Color YELLOW; Mononuclear WBC Body Fluid 90 %; Polynuclear WBC Body Fluid 10 %
[2023-10-13] MEDS: MEROPENEM 1,000 MG in SODIUM CHLORIDE 0.9% 100 ML 200 MG IV (22:49)
--- NOTE | 2023-10-13 23:30 | PC.NURSE ---
Pt arrived to floor via stretcher, ambulated to bed independently. AOx4, calm and cooperative. Room air, denies any pain. Skin intact. VS taken and notified attending for orders. Patient does not remember home medications and does not have a list, but said she could call the pharmacy in the morning and have it faxed. Will continue to monitor, call light in reach.
[2023-10-14] MEDS: VANCOMYCIN 1,500 MG/300 ML PIGGYBACK 200 MG IV (00:54)
[2023-10-14] MEDS: MELATONIN 3 MG TABLET 9 MG PO ×2 (00:54→20:30)
--- NOTE | 2023-10-14 03:10 | PM.HP.1 ---
History of Present Illness History of Present Illness Chief complaint: ascites; high HR Narrative: 43 years old female with history of alcoholic cirrhosis, depression, alcohol abuse, presented to the ER with fever and tachycardia at rate of 150. She was seen earlier today in local clinic and was referred to the ER for further evaluation. The patient reports feeling bloated across her abdomen, leg swelling and temperature of 100.3. She was discharged from hospital on October 09 for alcoholic hepatitis and alcohol withdrawal. Discharged home on benzos, steroids and Levaquin for 2 days. Today she had paracentesis in the ER and removed 1.2 l of abdominal fluid. Denies any shortness of breath, cough, chest pain, palpitations, nausea, vomiting, diarrhea or dysuria. Her initial labs shows WBC 16, H&H 12.2/35.9, platelets 285, INR 1.3, D-dimer 1640, sodium 136, potassium 4.6, creatinine 0.52, blood sugar 117, AST/ALT 195/75, total bilirubin 3.2, albumin 3.1, procalcitonin 0.31, UA shows nitrate positive, leukoesterase 2+, WBC 5?10, bacteria moderate, chest x-ray shows trace pleural effusion with atelectasis and mild cardiomegaly, abdominal CT scan shows bowel wall thickening in colon significant decreased compared to the previous CT scan, hepatomegaly with diffuse hepatic steatosis, signs of portal hypertension, ascites and cirrhosis. CT of the chest shows no PE, bilateral atelectasis and low lung volume, trace bilateral pleural effusion and mild cardiomegaly. Vital signs shows temperature 98.7, pulse 121, blood pressure 103/54, oxygen saturation 93% on room air. She was given in the ED ceftriaxone 2 g IV, vancomycin 1.5 g IV, Toradol 15 mg IV, Ativan 0.5 mg IV, NS bolus 1 L [facility] Medical History Alcoholic hepatitis Chicken pox (~1983) Social History household members: significant other, family and children Smoking Status: Former smoker Meds Home Medications and Allergies Home Medications Medication Instructions Recorded Confirmed Type albuterol sulfate 90 mcg/actuation 2 puff inhalation Q4-6H PRN 08/27/23 10/13/23 Rx aerosol inhaler shortness of breath or wheezing #8.5 grams chlordiazepoxide HCl 25 mg capsule See Rx Instructions .Route 10/09/23 10/13/23 Rx .COMPLEX #6 caps methocarbamol 750 mg tablet 750 mg PO TID #90 tabs 10/09/23 10/13/23 Rx prednisone 20 mg tablet 40 mg (2 x 20 mg) PO DAILY 25 days 10/09/23 10/13/23 Rx #50 tabs spironolactone 25 mg tablet 25 mg PO DAILY #30 tabs 10/13/23 10/13/23 Rx torsemide 20 mg tablet 20 mg PO DAILY #30 tabs 10/13/23 10/13/23 Rx Allergies Allergy/AdvReac Type Severity Reaction Status Date / Time Penicillins Allergy Intermediate Rash Verified 10/13/23 14:32 ceftriaxone [From Rocephin] AdvReac Intermediate Verified 10/13/23 14:32 hydrocodone AdvReac Unknown Verified 10/13/23 14:32 Review of Systems Review of Systems ROS: Yes All systems reviewed with the patient and are negative except as otherwise documented Constitutional Constitutional: Reports as per HPI and Reports system reviewed and no additional complaints, except as documented Eyes Eyes: Reports as per HPI and Reports system reviewed and no additional complaints, except as documented ENT Ears, Nose, Mouth, and Throat: Yes as per HPI and Yes system reviewed and no additional complaints, except as documented Cardiovascular Cardiovascular: Reports system reviewed and no additional complaints, except as documented Respiratory Respiratory: Reports system reviewed and no additional complaints, except as documented Gastrointestinal Gastrointestinal: Reports system reviewed and no additional complaints, except as documented Genitourinary Genitourinary: Reports system reviewed and no additional complaints, except as documented Musculoskeletal Musculoskeletal: Reports system reviewed and no additional complaints, except as documented, Reports abnormal gait and Reports numbness Neurologic Neurologic: Reports system reviewed and no additional complaints, except as documented, Reports abnormal gait, Reports confusion and Reports numbness Psychiatric Psychiatric: Reports system reviewed and no additional complaints, except as documented and Reports confusion Exam Vital Signs (past 8 hours): - 10/13/23 19:11 10/13/23 19:11 10/13/23 19:30 Temperature Pulse Rate 144 H Respiratory Rate 34 H Blood Pressure 130/72 131/73 Pulse Oximetry 98 Oxygen Delivery Method Room Air 10/13/23 19:30 10/13/23 20:00 10/13/23 20:10 Temperature Pulse Rate 138 H 137 H Respiratory Rate 30 H 30 H Blood Pressure 133/62 Pulse Oximetry 97 98 Oxygen Delivery Method 10/13/23 20:10 10/13/23 20:30 10/13/23 20:33 Temperature Pulse Rate 138 H 137 H Respiratory Rate 31 H 28 H Blood Pressure 118/68 Pulse Oximetry Oxygen Delivery Method 10/13/23 20:33 10/13/23 21:00 10/13/23 21:00 Temperature Pulse Rate 138 H 137 H Respiratory Rate 28 H 32 H Blood Pressure 123/67 Pulse Oximetry 98 98 Oxygen Delivery Method Room Air 10/13/23 21:30 10/13/23 21:30 10/13/23 21:45 Temperature Pulse Rate 132 H Respiratory Rate 26 H Blood Pressure 113/59 L 111/58 L Pulse Oximetry 97 Oxygen Delivery Method 10/13/23 21:45 10/13/23 22:00 10/13/23 22:00 Temperature Pulse Rate 125 H 126 H Respiratory Rate 26 H 25 H Blood Pressure 109/59 L Pulse Oximetry 97 97 Oxygen Delivery Method Room Air 10/13/23 22:15 10/13/23 22:15 10/13/23 22:30 Temperature Pulse Rate 123 H Respiratory Rate 26 H Blood Pressure 112/60 108/58 L Pulse Oximetry 99 Oxygen Delivery Method 10/13/23 22:30 10/13/23 22:45 10/13/23 22:45 Temperature Pulse Rate 124 H 121 H Respiratory Rate 30 H 30 H Blood Pressure 106/57 L Pulse Oximetry 95 95 Oxygen Delivery Method 10/13/23 23:00 10/13/23 23:00 10/13/23 23:08 Temperature Pulse Rate 119 H Respiratory Rate 26 H Blood Pressure 99/55 L Pulse Oximetry 98 Oxygen Delivery Method Room Air Room Air 10/13/23 23:30 Temperature 98.7 F Pulse Rate 121 H Respiratory Rate 19 Blood Pressure 103/54 L Pulse Oximetry 93 Oxygen Delivery Method Oxygen Delivery Method Room Air Const General: cooperative, comfortable and well developed Orientation: alert and oriented x3 HENMT Head: normal to inspection, normocephalic and atraumatic Face and sinus: normal facial exam Mouth: oral mucosae normal and moist mucous membranes Throat: posterior oropharynx normal Eyes General: appearance normal, both eyes and all related structures Pupils: PERRL EOM: EOM intact bilaterally Neck Neck: normal visual inspection and full ROM Chest Chest: normal inspection of the chest Resp Effort & Inspection: normal respiratory effort and able to speak in complete sentences Auscultation: clear to auscultation bilaterally Cardio Palpation: normal PMI Rate: regular rate Rhythm: regular rhythm Heart Sounds: S1 normal and S2 normal GI Inspection: normal to inspection Palpation: soft and no hepatosplenomegaly Auscultation: normal bowel sounds Skin General: no rashes or lesions noted Lesions: no lesions Rashes: no rashes Trauma: no lacerations or abrasions Neuro General: patient alert, patient awake, patient oriented x3 and no focal motor deficits Cranial Nerves: CN's II-XI intact bilaterally Cognition: normal cognition Speech: speech normal Gait: normal gait Motor: muscle tone normal throughout Sensory Exam: no sensory deficits noted Extrem General: full ROM and no calf tenderness Psych Appearance: grossly normal Mental Status: mental status grossly normal Speech and Movement: speech and movement normal Objective Labs 10/13/23 18:50 10/13/23 18:50 Labs: Laboratory Results - last 24 hr 10/13/23 10/13/23 10/13/23 18:50 19:00 19:27 WBC 16.0 H RBC 3.14 L Hgb 12.2 Hct 35.9 L MCV 114.4 H MCH 38.8 H MCHC 34.0 RDW 18.7 H Plt Count 285 Neut % (Auto) 77.2 H Lymph % (Auto) 13.3 L [place] % (Auto) 6.9 Eos % (Auto) 2.0 Baso % (Auto) 0.6 Neut # (Auto) 82489 H Lymph # (Auto) 2100 [place] # (Auto) 1100 H Eos # (Auto) 300 Baso # (Auto) 100 RBC Morphology See below Anisocytosis 1+ H Macrocytosis 1+ H Target Cells 1+ H PT 15.0 H INR 1.3 D-Dimer 1640 H Sodium 136 L Potassium 4.6 Chloride 103 Carbon Dioxide 27 BUN 15 Creatinine 0.52 Estimated GFR > 60 BUN/Creatinine Ratio 28.8 H Glucose 117 H Lactate 2.1 Calcium 9.2 Total Bilirubin 3.2 H AST 195 H ALT 73 H Alkaline Phosphatase 258 H Total Creatine Kinase < 20 L Troponin I < 0.012 Total Protein 7.3 Albumin 3.1 L Globulin 4.2 H Albumin/Globulin Ratio 0.7 L Procalcitonin 0.31 Urine Color Yellow Urine Appearance Sl cloudy Urine pH 6.5 Ur Specific [place] 1.020 Urine Protein 1+ H Urine Glucose (UA) Negative Urine Ketones Trace H Urine Occult Blood Negative Urine Nitrate Positive H Urine Bilirubin 2+ H Ur Bilirubin Confirm Cancelled Urine Urobilinogen 1.0 Ur Leukocyte Esterase 2+ H Urine RBC None seen Urine WBC 5-10/hpf H Ur Squamous Epith Cells 1-5 /hpf Urine Bacteria Moderate (10-30) H Ur Culture Indicated? Specimen cultured Fluid Color Fluid Appearance Fluid RBC Fld Tot Nucleated Cell Fluid Polynuclear WBCs Fluid Mononuclear WBCs Fluid Eosinophils Fluid Other Cells Body Fluid Clot Chlamy pneumoniae PCR Not detected Adenovirus (PCR) Not detected B.parapertussis DNA PCR Not detected Coronavirus OC43 (PCR) Not detected Coronavirus HKU1 (PCR) Not detected Coronavirus 229E (PCR) Not detected SARS-CoV-2 (PCR) Not detected Coronavirus NL63 (PCR) Not detected Human Metapneumovir PCR Not detected Influenza Type A (PCR) Not detected Influenza Type B (PCR) Not detected M. pneumoniae (PCR) Not detected Parainfluenza 1 (PCR) Not detected Parainfluenza 2 (PCR) Not detected Parainfluenza 3 (PCR) Not detected Parainfluenza 4 (PCR) Not detected RSV (PCR) Not detected Entero/Rhino (PCR) Not detected 10/13/23 10/13/23 21:20 21:30 WBC RBC Hgb Hct MCV MCH MCHC RDW Plt Count Neut % (Auto) Lymph % (Auto) [place] % (Auto) Eos % (Auto) Baso % (Auto) Neut # (Auto) Lymph # (Auto) [place] # (Auto) Eos # (Auto) Baso # (Auto) RBC Morphology Anisocytosis Macrocytosis Target Cells PT INR D-Dimer Sodium Potassium Chloride Carbon Dioxide BUN Creatinine Estimated GFR BUN/Creatinine Ratio Glucose Lactate 1.8 Calcium Total Bilirubin AST ALT Alkaline Phosphatase Total Creatine Kinase Troponin I Total Protein Albumin Globulin Albumin/Globulin Ratio Procalcitonin Urine Color Urine Appearance Urine pH Ur Specific [place] Urine Protein Urine Glucose (UA) Urine Ketones Urine Occult Blood Urine Nitrate Urine Bilirubin Ur Bilirubin Confirm Urine Urobilinogen Ur Leukocyte Esterase Urine RBC Urine WBC Ur Squamous Epith Cells Urine Bacteria Ur Culture Indicated? Fluid Color Yellow Fluid Appearance Hazy Fluid RBC < 1000 Fld Tot Nucleated Cell 68 Fluid Polynuclear WBCs 10 Fluid Mononuclear WBCs 90 Fluid Eosinophils Not Reportable Fluid Other Cells Not Reportable Body Fluid Clot No clots present Chlamy pneumoniae PCR Adenovirus (PCR) B.parapertussis DNA PCR Coronavirus OC43 (PCR) Coronavirus HKU1 (PCR) Coronavirus 229E (PCR) SARS-CoV-2 (PCR) Coronavirus NL63 (PCR) Human Metapneumovir PCR Influenza Type A (PCR) Influenza Type B (PCR) M. pneumoniae (PCR) Parainfluenza 1 (PCR) Parainfluenza 2 (PCR) Parainfluenza 3 (PCR) Parainfluenza 4 (PCR) RSV (PCR) Entero/Rhino (PCR) Assessment & Plan Assessment and plan (1) Sepsis: Problem details: Most likely due to UTI Status: Acute Plan: Continue with antibiotics, gentle rehydration and follow-up on the blood cultures and urine cultures (2) Urinary tract infection: Status: Acute Plan: Patient was started on meropenem due to allergy to ceftriaxone and penicillin. Follow-up on the urine culture (3) Alcohol use disorder: Status: Acute Plan: Monitor for any withdrawal symptoms Ativan as needed (4) Ascites: Qualifiers: Ascites type: due to alcoholic hepatitis Qualified Code(s): K70.11 - Alcoholic hepatitis with ascites Status: Acute Plan: Removed 1.2 L abdominal fluid in the ED. No sign of SBP Pain medications and antiemetics as needed (5) Alcoholic hepatitis: Qualifiers: Ascites presence: with ascites Qualified Code(s): K70.11 - Alcoholic hepatitis with ascites Status: Acute Plan: Education on alcohol abstinence Time Spent With Patient Time with patient: 50 to 69 minutes with 50% spent counseling/coordinating care Quality VTE Deep Vein Thrombosis/Pulmonary Embolism Present on Admission: No MIPS - Admit I confirm the patient?s Advance Care Plan is present, Code status is documented, Surrogate decision maker is in patient?s record [If Yes, STOP here]: Yes MIPS - Meds 'Current medications' to include all prescriptions, [id number] products, herbals, cannabis/cannabidiol products, and vitamin/mineral/dietary (nutritional) supplements. I have utilized all available resources to obtain, update, or review the patient?s current medications. [If Yes, STOP here]: Yes
[2023-10-14 03:57] VITALS: BMI 37.3
[2023-10-14 04:00] VITALS: BP 114/60; PULSE 111; RESP 21; TEMP 36.8; O2SAT 93
[2023-10-14] MEDS: MEROPENEM 500 MG in SODIUM CHLORIDE 0.9% 100 ML 200 MG IV (05:59)
[2023-10-14] MEDS: IBUPROFEN 400 MG TABLET PO ×2 (07:06→15:58)
[2023-10-14] MEDS: methocarbamoL 500 MG TABLET 750 MG PO ×3 (08:26→20:29)
[2023-10-14] MEDS: SPIRONOLACTONE 25 MG TABLET PO (08:27)
[2023-10-14] MEDS: TORSEMIDE 10 MG TABLET 20 MG PO (08:27)
[2023-10-14] MEDS: predniSONE 20 MG TABLET 40 MG PO (08:27)
[2023-10-14 09:23] LABS: Alanine Aminotransferase 57 IU/L (<35); Albumin 2.3 g/dL (3.5-5.0); Albumin Globulin Ratio 0.7 (1.0-2.8); Alkaline Phosphatase 182 U/L (38-126); Aspartate Aminotransferase 127 IU/L (14-36); BUN Creatinine Ratio 28.9 (6-22); Bilirubin Total 3.1 mg/dL (0.2-1.3); Blood Urea Nitrogen 13 mg/dL (7-17); Calcium 7.9 mg/dL (8.4-10.2); Carbon Dioxide 25 mmol/L (22-32); Chloride 107 mmol/L (98-107); Estimated Glomerular Filt Rate > 60 mL/min (>60); Globulin 3.5 g/dL (1.7-4.1); Glucose 98 mg/dL (70-100); HEMOLYSIS < 15 (0-50); Magnesium 1.7 mg/dL (1.6-2.3); Sodium 135 mmol/L (137-145); Total Protein 5.8 g/dL (6.3-8.2)
[2023-10-14 11:34] VITALS: BP 131/76; PULSE 104; RESP 20; TEMP 36.8; O2SAT 96
--- NOTE | 2023-10-14 14:38 | P.PN_ITS ---
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 Cell count was not concerning for SBP on evaluation and paracentesis. UA positive and started on antibiotics. Complains of vaginal itching and yeast infection today. Abdominal pain is more of a discomfort and feeling like it is bloated. Had fluid removed last night, about 1.2 L and feels better today. She reports compliance with medications and is not drinking. Exam Vital Signs (past 8 hours): - 10/14/23 11:34 Temperature 98.2 F Pulse Rate 104 H Respiratory Rate 20 Blood Pressure 131/76 Pulse Oximetry 96 Oxygen Flow Rate 0 Oxygen Delivery Method Room Air Oxygen Flow Rate 0 Narrative Exam Narrative: Gen: mildly ill appearing female, uncomfortable appearing, obese CV: RRR no m/r/g Pulm: bibasilar decreased breath sounds Abd: Soft, mild distension and ascites Ext: no edema or joint effusions. Objective Labs 10/13/23 18:50 10/14/23 08:27 Labs: Laboratory Results - last 24 hr 10/13/23 10/13/23 10/13/23 18:50 19:00 19:27 WBC 16.0 H RBC 3.14 L Hgb 12.2 Hct 35.9 L MCV 114.4 H MCH 38.8 H MCHC 34.0 RDW 18.7 H Plt Count 285 Neut % (Auto) 77.2 H Lymph % (Auto) 13.3 L Cannon % (Auto) 6.9 Eos % (Auto) 2.0 Baso % (Auto) 0.6 Neut # (Auto) 08339 H Lymph # (Auto) 2100 Cannon # (Auto) 1100 H Eos # (Auto) 300 Baso # (Auto) 100 RBC Morphology See below Anisocytosis 1+ H Macrocytosis 1+ H Target Cells 1+ H PT 15.0 H INR 1.3 D-Dimer 1640 H Sodium 136 L Potassium 4.6 Chloride 103 Carbon Dioxide 27 BUN 15 Creatinine 0.52 Estimated GFR > 60 BUN/Creatinine Ratio 28.8 H Glucose 117 H Lactate 2.1 Calcium 9.2 Magnesium Total Bilirubin 3.2 H AST 195 H ALT 73 H Alkaline Phosphatase 258 H Total Creatine Kinase < 20 L Troponin I < 0.012 Total Protein 7.3 Albumin 3.1 L Globulin 4.2 H Albumin/Globulin Ratio 0.7 L Procalcitonin 0.31 Urine Color Yellow Urine Appearance Sl cloudy Urine pH 6.5 Ur Specific Wrens 1.020 Urine Protein 1+ H Urine Glucose (UA) Negative Urine Ketones Trace H Urine Occult Blood Negative Urine Nitrate Positive H Urine Bilirubin 2+ H Ur Bilirubin Confirm Cancelled Urine Urobilinogen 1.0 Ur Leukocyte Esterase 2+ H Urine RBC None seen Urine WBC 5-10/hpf H Ur Squamous Epith Cells 1-5 /hpf Urine Bacteria Moderate (10-30) H Ur Culture Indicated? Specimen cultured Fluid Color Fluid Appearance Fluid RBC Fld Tot Nucleated Cell Fluid Polynuclear WBCs Fluid Mononuclear WBCs Fluid Eosinophils Fluid Other Cells Body Fluid Clot Chlamy pneumoniae PCR Not detected Adenovirus (PCR) Not detected B.parapertussis DNA PCR Not detected Coronavirus OC43 (PCR) Not detected Coronavirus HKU1 (PCR) Not detected Coronavirus 229E (PCR) Not detected SARS-CoV-2 (PCR) Not detected Coronavirus NL63 (PCR) Not detected Human Metapneumovir PCR Not detected Influenza Type A (PCR) Not detected Influenza Type B (PCR) Not detected M. pneumoniae (PCR) Not detected Parainfluenza 1 (PCR) Not detected Parainfluenza 2 (PCR) Not detected Parainfluenza 3 (PCR) Not detected Parainfluenza 4 (PCR) Not detected RSV (PCR) Not detected Entero/Rhino (PCR) Not detected 10/13/23 10/13/23 10/14/23 21:20 21:30 08:27 WBC RBC Hgb Hct MCV MCH MCHC RDW Plt Count Neut % (Auto) Lymph % (Auto) Cannon % (Auto) Eos % (Auto) Baso % (Auto) Neut # (Auto) Lymph # (Auto) Cannon # (Auto) Eos # (Auto) Baso # (Auto) RBC Morphology Anisocytosis Macrocytosis Target Cells PT INR D-Dimer Sodium 135 L Potassium 4.0 Chloride 107 Carbon Dioxide 25 BUN 13 Creatinine 0.45 L Estimated GFR > 60 BUN/Creatinine Ratio 28.9 H Glucose 98 Lactate 1.8 Calcium 7.9 L Magnesium 1.7 Total Bilirubin 3.1 H AST 127 H ALT 57 H Alkaline Phosphatase 182 H Total Creatine Kinase Troponin I Total Protein 5.8 L Albumin 2.3 L Globulin 3.5 Albumin/Globulin Ratio 0.7 L Procalcitonin Urine Color Urine Appearance Urine pH Ur Specific Wrens Urine Protein Urine Glucose (UA) Urine Ketones Urine Occult Blood Urine Nitrate Urine Bilirubin Ur Bilirubin Confirm Urine Urobilinogen Ur Leukocyte Esterase Urine RBC Urine WBC Ur Squamous Epith Cells Urine Bacteria Ur Culture Indicated? Fluid Color Yellow Fluid Appearance Hazy Fluid RBC < 1000 Fld Tot Nucleated Cell 68 Fluid Polynuclear WBCs 10 Fluid Mononuclear WBCs 90 Fluid Eosinophils Not Reportable Fluid Other Cells Not Reportable Body Fluid Clot No clots present Chlamy pneumoniae PCR Adenovirus (PCR) B.parapertussis DNA PCR Coronavirus OC43 (PCR) Coronavirus HKU1 (PCR) Coronavirus 229E (PCR) SARS-CoV-2 (PCR) Coronavirus NL63 (PCR) Human Metapneumovir PCR Influenza Type A (PCR) Influenza Type B (PCR) M. pneumoniae (PCR) Parainfluenza 1 (PCR) Parainfluenza 2 (PCR) Parainfluenza 3 (PCR) Parainfluenza 4 (PCR) RSV (PCR) Entero/Rhino (PCR) [facility] Medical History Alcoholic hepatitis Chicken pox (~1983) Social History household members: significant other, family and children Smoking Status: Former smoker Assessment & Plan Assessment & Plan narrative: # Sepsis ruled out - patient with elevation in bilirubin but unchanged from recently. SOFA score is 0. #Acute cystitis WBC elevation possibly due to steroids, abdominal discomfort suspect related to ascites. - change from meropenem to macrobid. Meropenem is excessive given penicillin and ctx allergy given presentation. Follow up urine cultures. #Alcohol use disorder: patient has been on librium taper from discharge, CIWA score 0 this morning, will not continue further. #Alcoholic hepatitis: Removed 1.2 L abdominal fluid in the ED. No sign of SBP based on cell count. continue home diuretics for now with tosemide and aldactone, may need increase in diuretic dose but will wait until further improved from UTI. Likely to reaccumulate fluid after multiple boluses given in the ER. continue prednisone for previously managed alcoholic hepatitis. Code: Full Dispo: Probable discharge home in 1-2 days. Quality VTE Deep Vein Thrombosis/Pulmonary Embolism Present on Admission: No MIPS - Admit I confirm the patient?s Advance Care Plan is present, Code status is documented, Surrogate decision maker is in patient?s record [If Yes, STOP here]: Yes
[2023-10-14] MEDS: FLUCONAZOLE 100 MG TABLET 150 MG PO (15:57)
--- NOTE | 2023-10-14 16:31 | CM.DANOTE ---
DCP Assessment Note Patient is a 43yo F here following sepsis/UTI/alcoholic hepatisis. Patient was here for alcohol withdrawal and alcoholic hepatitis from 10.06.23-10.09.23 PCP Guillermo Courtney and Medicaid AGRICULTURAL SYSTEMS SPECIALIST reviewed EMR. Current CIWAs of 0. Per provider, likely here another day or two. AGRICULTURAL SYSTEMS SPECIALIST entered room and introduced self and role. Patient sitting up and accompanied by brother at bedside. Pt reports no change in living situation from previous visit, she lives on [address] with mother (Mariana [phone]) and her two children, 17yr old son and 4yr old daughter. Children are currently being cared for by patient's mother. 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 Pt reports excited about rehab options provided to her last time she was here, has not checked them out yet because she's remained sick. Patient is hopeful to pursue online AA meetings. Pt reports she was told she may dc either tomorrow or next day. Pt reports she has not had an alcoholic beverage since last visit. Family to transport home. Would need priority boarding pass. Plan: home with family when medically stable. Family to transport- will need boarding pass. No additional CM needs at this time. CM team will continue to follow as needed. SUKHJINDER Alicia Discharge Planning/Care Management CM Discharge Assessment Start: 10/14/23 16:30 Freq: Status: Active Protocol: Document 10/14/23 16:30 (Rec: 10/14/23 16:31 [id number]) Discharge Planning Assessment Assigned Manager Business Continuity SUKHJINDER Schmid DPOA/Assigned Designee Name Mariana Roldan (mother) Contact Information [phone] Advance Directives? No History Provided By Patient,Medical Record Prior Living Arrangements House Household Members significant other,family, children Type of transporation used prior to Drives own vehicle admit Independent with ADL's Yes Is patient alert and oriented? Yes Discharge Plan Home Transportation Arrangement likely family in POV Whiteboard Updated in Patient Room with Yes name and ext. # of Manager Business Continuity Review Status In Process Next Review Type Continued Stay Review
[2023-10-14] MEDS: NITROFURANTOIN ER 100 MG CAPSULE PO (20:29)
[2023-10-14 20:48] VITALS: BP 121/76; PULSE 104; RESP 17; TEMP 36.3; O2SAT 91
[2023-10-15 05:45] VITALS: BP 113/67; PULSE 96; RESP 18; TEMP 36.6; O2SAT 93
[2023-10-15] MEDS: NITROFURANTOIN ER 100 MG CAPSULE PO (08:51)
[2023-10-15] MEDS: methocarbamoL 500 MG TABLET 750 MG PO ×3 (08:51→20:38)
[2023-10-15] MEDS: IBUPROFEN 400 MG TABLET PO ×2 (08:51→14:30)
[2023-10-15] MEDS: predniSONE 20 MG TABLET 40 MG PO (08:52)
[2023-10-15] MEDS: TORSEMIDE 10 MG TABLET 20 MG PO (08:52)
[2023-10-15] MEDS: SPIRONOLACTONE 25 MG TABLET PO (08:52)
[2023-10-15 09:00] VITALS: BP 138/79; PULSE 108; RESP 16; TEMP 36.4; O2SAT 95
[2023-10-15 09:33] LABS: Alanine Aminotransferase 48 IU/L (<35); Albumin 2.2 g/dL (3.5-5.0); Albumin Globulin Ratio 0.6 (1.0-2.8); Alkaline Phosphatase 198 U/L (38-126); Aspartate Aminotransferase 60 IU/L (14-36); BUN Creatinine Ratio 36.6 (6-22); Bilirubin Total 1.9 mg/dL (0.2-1.3); Blood Urea Nitrogen 15 mg/dL (7-17); Calcium 8.2 mg/dL (8.4-10.2); Carbon Dioxide 27 mmol/L (22-32); Chloride 105 mmol/L (98-107); Estimated Glomerular Filt Rate > 60 mL/min (>60); Globulin 3.4 g/dL (1.7-4.1); Glucose 95 mg/dL (70-100); HEMOLYSIS < 15 (0-50); Potassium 3.2 mmol/L (3.4-5.1); Sodium 137 mmol/L (137-145); Total Protein 5.6 g/dL (6.3-8.2)
[2023-10-15] MEDS: levoFLOXacin 750 MG/150 ML PIGGYBACK 100 MG IV (10:22)
[2023-10-15] MEDS: POTASSIUM CHLORIDE 20 MEQ TAB 40 MEQ PO ×2 (11:37→17:30)
--- NOTE | 2023-10-15 11:50 | P.PN_ITS ---
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 Cell count was not concerning for SBP on evaluation and paracentesis. UA positive and started on antibiotics, urine culture with multiple dion. Abdominal pain now lower down, associated with slight worsening of diarrhea. POC ultrasound today performed by me at bedside only shows minimal ascites, not signigicant enough for a paracentesis. Ordered for repeat GI panel to see if return/persistence of previous EAEC or if new C. diff infection. Changed back to levofloxacin given previous improvement. Exam Vital Signs (past 8 hours): - 10/15/23 05:45 10/15/23 09:00 Temperature 97.8 F 97.5 F L Pulse Rate 96 H 108 H Respiratory Rate 18 16 Blood Pressure 113/67 138/79 Pulse Oximetry 93 95 Oxygen Delivery Method Room Air Oxygen Flow Rate 0 Narrative Exam Narrative: Gen: mildly ill appearing female, uncomfortable appearing, obese CV: RRR no m/r/g Pulm: bibasilar decreased breath sounds Abd: Soft, mild distension and ascites, tender b/l LQ Ext: no edema or joint effusions. Objective Labs 10/13/23 18:50 10/15/23 08:20 Labs: Laboratory Results - last 24 hr 10/15/23 08:20 Sodium 137 Potassium 3.2 L Chloride 105 Carbon Dioxide 27 BUN 15 Creatinine 0.41 L Estimated GFR > 60 BUN/Creatinine Ratio 36.6 H Glucose 95 Calcium 8.2 L Magnesium 2.0 Total Bilirubin 1.9 H AST 60 H ALT 48 H Alkaline Phosphatase 198 H Total Protein 5.6 L Albumin 2.2 L Globulin 3.4 Albumin/Globulin Ratio 0.6 L [facility] Medical History Alcoholic hepatitis Chicken pox (~1983) Social History household members: significant other, family and children Smoking Status: Former smoker Assessment & Plan Assessment & Plan narrative: # Sepsis ruled out - patient with elevation in bilirubin but unchanged from recently. SOFA score is 0. #Acute cystitis WBC elevation possibly due to steroids, abdominal discomfort suspect related to ascites. - changed from meropenem to macrobid yesterday. Meropenem is excessive given penicillin and ctx allergy given presentation. Urine culture with multiple dion. - Will change to Levaquin today for possible colitis as the etiology for her abdominal pain. #Alcohol use disorder: patient has been on librium taper from discharge, CIWA score 0, and librium was not continued here. #Alcoholic hepatitis: Removed 1.2 L abdominal fluid in the ED. No sign of SBP based on cell count. continue home diuretics for now with tosemide and aldactone, may need increase in diuretic dose but will wait until further improved from UTI. Likely to reaccumulate fluid after multiple boluses given in the ER. continue prednisone for previously managed alcoholic hepatitis. #Colitis - return / worsening of diarrhea. GI panel to see if EAEC recurrence or if C. diff now present. Changed antiboitics to Levaquin given previous improvement. Code: Full Dispo: Probable discharge home in 1-2 days. Quality VTE Deep Vein Thrombosis/Pulmonary Embolism Present on Admission: No
[2023-10-15 12:44] LABS: Adenovirus F 40/41 Not Detected (Not Detect); Astrovirus Not Detected (Not Detect); Campylobacter Not Detected (Not Detect); Clostridium difficile toxin AB Not Detected (Not Detect); Cryptosporidium Not Detected (Not Detect); Cyclospora cayetanensis Not Detected (Not Detect); Entamoeba histolytica Not Detected (Not Detect); Enteroaggregative E.coli Not Detected (Not Detect); Enteropathogenic E.coli Not Detected (Not Detect); Enterotoxigenic E.coli It/st Not Detected (Not Detect); Giardia lamblia Not Detected (Not Detect); Norovirus GI/GII Not Detected (Not Detect); Plesiomonsa shigelloides Not Detected (Not Detect); Rotavirus A Not Detected (Not Detect); Salmonella Not Detected (Not Detect); Sapovirus Not Detected (Not Detect); Shiga-like toxin-prod E.coli Not Detected (Not Detect); Shigella/Enteroinvasive E.coli Not Detected (Not Detect); Vibrio Not Detected (Not Detect); Vibrio cholerae Not Detected (Not Detect); Yersinia enterocolitica Not Detected (Not Detect)
[2023-10-15 13:00] VITALS: BP 122/81; PULSE 106; RESP 16; TEMP 36.7; O2SAT 98
[2023-10-15 19:50] VITALS: BP 126/94; PULSE 106; RESP 18; TEMP 36.4; O2SAT 97
[2023-10-15] MEDS: MELATONIN 3 MG TABLET 9 MG PO (20:38)
[2023-10-16 00:21] VITALS: BP 100/53; PULSE 100; RESP 18; TEMP 36.6; O2SAT 95
[2023-10-16 04:00] VITALS: BP 102/56; PULSE 93; RESP 16; TEMP 36.5; O2SAT 94
[2023-10-16 08:00] VITALS: BP 99/60; PULSE 94; RESP 18; TEMP 36.2; O2SAT 95
[2023-10-16 08:12] LABS: Basophils Absolute Auto 100 /uL (0-100); Basophils Percent Auto 1.1 % (0-2); Eosinophils Absolute Auto 100 /uL (0-450); Eosinophils Percent Auto 0.9 % (2-4); Hematocrit 32.3 % (36-46); Hemoglobin 10.9 g/dL (12.0-16.0); Lymphocytes Absolute Auto 1700 /uL (1100-4500); Lymphocytes Percent Auto 16.1 % (25-40); Mean Corpuscular HGB Conc 33.9 % (30-36); Mean Corpuscular Hemoglobin 38.5 PG (26-34); Mean Corpuscular Volume 113.5 fL (80-100); Monocytes Absolute Auto 600 /uL (0-900); Monocytes Percent Auto 5.4 % (3-14); Neutrophils Absolute Auto 8100 /uL (1500-7000); Neutrophils Percent Auto 76.5 % (50-75); Platelet Count 227 X10^3/uL (150-400); Red Blood Cell Count 2.84 X10^6/uL (4.0-5.2); Red Cell Distribution Width 17.8 % (11.6-14.8); White Blood Cell Count 10.6 X10^3/uL (4.5-11.0)
[2023-10-16 08:18] LABS: Add Manual Diff / Slide Review SLIDE REVIEW
[2023-10-16 08:19] LABS: Alanine Aminotransferase 53 IU/L (<35); Albumin 2.7 g/dL (3.5-5.0); Albumin Globulin Ratio 0.7 (1.0-2.8); Alkaline Phosphatase 195 U/L (38-126); Aspartate Aminotransferase 69 IU/L (14-36); BUN Creatinine Ratio 31.5 (6-22); Bilirubin Total 1.9 mg/dL (0.2-1.3); Blood Urea Nitrogen 17 mg/dL (7-17); Calcium 8.5 mg/dL (8.4-10.2); Carbon Dioxide 30 mmol/L (22-32); Chloride 104 mmol/L (98-107); Estimated Glomerular Filt Rate > 60 mL/min (>60); Globulin 3.9 g/dL (1.7-4.1); Glucose 89 mg/dL (70-100); HEMOLYSIS < 15 (0-50); Potassium 3.6 mmol/L (3.4-5.1); Sodium 137 mmol/L (137-145); Total Protein 6.6 g/dL (6.3-8.2)
[2023-10-16 08:24] LABS: Anisocytosis 1+; Macrocytosis 2+
[2023-10-16] MEDS: predniSONE 20 MG TABLET 40 MG PO (08:57)
[2023-10-16] MEDS: methocarbamoL 500 MG TABLET 750 MG PO ×3 (08:57→20:33)
[2023-10-16] MEDS: TORSEMIDE 10 MG TABLET 20 MG PO (08:58)
[2023-10-16] MEDS: levoFLOXacin 750 MG/150 ML PIGGYBACK 100 MG IV (08:58)
[2023-10-16] MEDS: IBUPROFEN 400 MG TABLET PO ×2 (08:58→20:34)
[2023-10-16] MEDS: SPIRONOLACTONE 25 MG TABLET 12.5 MG PO (10:13)
[2023-10-16 12:00] VITALS: BP 106/54; PULSE 102; RESP 18; TEMP 36.4; O2SAT 100
--- NOTE | 2023-10-16 14:13 | PC.NURSE ---
Day shift: Notified of + guac of stool per night RN. Also notified MD Henderson of lower BP this am - / and he decreased spironolactone dose. Pt OOB independently. Mild abdominal pain, controlled with Ibuprofen. Will continue to monitor.
--- NOTE | 2023-10-16 15:03 | P.PN_ITS ---
Subjective Subjective Interval history: Patient still having LUQ abd pain. Better with muscle relaxers however. Exam Vital Signs (past 8 hours): - 10/16/23 08:00 10/16/23 12:00 Temperature 97.1 F L 97.5 F L Pulse Rate 94 H 102 H Respiratory Rate 18 18 Blood Pressure 99/60 106/54 L Pulse Oximetry 95 100 Oxygen Flow Rate 0 0 Oxygen Delivery Method Room Air Oxygen Flow Rate 0 Narrative Exam Narrative: Gen: mildly ill appearing female, uncomfortable appearing, obese CV: RRR no m/r/g Pulm: bibasilar decreased breath sounds Abd: Soft, mild distension and ascites, tender LUQ Ext: no edema or joint effusions. Objective Labs 10/16/23 07:40 10/16/23 07:40 Labs: Laboratory Results - last 24 hr 10/13/23 10/16/23 10/16/23 21:20 07:23 07:40 WBC 10.6 RBC 2.84 L Hgb 10.9 L Hct 32.3 L MCV 113.5 H MCH 38.5 H MCHC 33.9 RDW 17.8 H Plt Count 227 Neut % (Auto) 76.5 H Lymph % (Auto) 16.1 L [place] % (Auto) 5.4 Eos % (Auto) 0.9 L Baso % (Auto) 1.1 Neut # (Auto) 8100 H Lymph # (Auto) 1700 [place] # (Auto) 600 Eos # (Auto) 100 Baso # (Auto) 100 RBC Morphology See below Anisocytosis 1+ H Macrocytosis 2+ H Smear Path Review Cancelled Sodium 137 Potassium 3.6 Chloride 104 Carbon Dioxide 30 BUN 17 Creatinine 0.54 Estimated GFR > 60 BUN/Creatinine Ratio 31.5 H Glucose 89 Calcium 8.5 Magnesium 2.0 Total Bilirubin 1.9 H AST 69 H ALT 53 H Alkaline Phosphatase 195 H Total Protein 6.6 Albumin 2.7 L Globulin 3.9 Albumin/Globulin Ratio 0.7 L Fluid Color Yellow Fluid Appearance Hazy Fluid RBC < 1000 Fld Tot Nucleated Cell 68 Fluid Polynuclear WBCs 10 Fluid Mononuclear WBCs 90 Body Fluid Clot No clots present PFSH Medical History Alcoholic hepatitis Chicken pox (~1983) Social History household members: significant other, family and children Smoking Status: Former smoker Assessment & Plan Assessment & Plan narrative: # Sepsis ruled out - patient with elevation in bilirubin but unchanged from recently. SOFA score is 0. #Acute cystitis - WBC elevation possibly due to steroids, abdominal discomfort suspect related to ascites. - changed from meropenem to macrobid. Meropenem is excessive given penicillin and ctx allergy given presentation. Urine culture with multiple dion. - changed to Levaquin for possible colitis as the etiology for her abdominal pain. #Alcohol use disorder: patient has been on librium taper from discharge, CIWA score 0, and librium was not continued here. #Alcoholic hepatitis: Removed 1.2 L abdominal fluid in the ED. No sign of SBP based on cell count. continue home diuretics for now with tosemide and aldactone, may need increase in diuretic dose but will wait until further improved from UTI. Likely to reaccumulate fluid after multiple boluses given in the ER. continue prednisone for previously managed alcoholic hepatitis. #Colitis - return / worsening of diarrhea. GI panel negative. - diarrhea now improving Code: Full Dispo: Probable discharge home on 10/17. Quality VTE Deep Vein Thrombosis/Pulmonary Embolism Present on Admission: No
[2023-10-16 16:00] VITALS: BP 96/52; PULSE 100; TEMP 36.4; O2SAT 94
[2023-10-16 20:00] VITALS: BP 114/62; PULSE 89; RESP 17; TEMP 36.2; O2SAT 95
[2023-10-16] MEDS: MELATONIN 3 MG TABLET 9 MG PO (20:33)
[2023-10-17] VITALS: BP 99/52; PULSE 91; RESP 17; TEMP 36.2; O2SAT 97
[2023-10-17 04:00] VITALS: BP 118/70; PULSE 93; RESP 18; TEMP 35.9; O2SAT 97
[2023-10-17 04:49] LABS: Hematocrit 33.8 % (36-46); Hemoglobin 11.4 g/dL (12.0-16.0); Mean Corpuscular HGB Conc 33.8 % (30-36); Mean Corpuscular Hemoglobin 38.2 PG (26-34); Mean Corpuscular Volume 112.9 fL (80-100); Platelet Count 244 X10^3/uL (150-400); Red Cell Distribution Width 17.1 % (11.6-14.8); White Blood Cell Count 11.2 X10^3/uL (4.5-11.0)
[2023-10-17 04:53] LABS: Add Manual Diff / Slide Review YES
[2023-10-17 05:10] LABS: Anisocytosis 2+; Macrocytosis 2+; Neutrophils Absolute Manual 8288 /uL (3000-5900); Platelet Estimate Adeq; Target Cells 1+; Total Cells Counted 100
[2023-10-17 08:00] VITALS: BP 109/60; PULSE 95; RESP 18; TEMP 36.6; O2SAT 98
[2023-10-17] MEDS: levoFLOXacin 750 MG/150 ML PIGGYBACK 100 MG IV (08:38)
[2023-10-17] MEDS: predniSONE 20 MG TABLET 40 MG PO (08:39)
[2023-10-17] MEDS: TORSEMIDE 10 MG TABLET 20 MG PO (08:39)
[2023-10-17] MEDS: methocarbamoL 500 MG TABLET 750 MG PO ×2 (08:39→14:02)
[2023-10-17] MEDS: SPIRONOLACTONE 25 MG TABLET 12.5 MG PO (08:40)
[2023-10-17] MEDS: IBUPROFEN 400 MG TABLET PO ×2 (08:40→14:03)
--- NOTE | 2023-10-17 09:15 | P.DS_ITS ---
History of Present Illness History of Present Illness Chief complaint: ascites; high HR Narrative: 43 years old female with history of alcoholic cirrhosis, depression, alcohol abuse, presented to the ER with fever and tachycardia at rate of 150. She was seen earlier today in local clinic and was referred to the ER for further evaluation. The patient reports feeling bloated across her abdomen, leg swelling and temperature of 100.3. She was discharged from hospital on October 09 for alcoholic hepatitis and alcohol withdrawal. Discharged home on benzos, steroids and Levaquin for 2 days. Today she had paracentesis in the ER and removed 1.2 l of abdominal fluid. Denies any shortness of breath, cough, chest pain, palpitations, nausea, vomiting, diarrhea or dysuria. Her initial labs shows WBC 16, H&H 12.2/35.9, platelets 285, INR 1.3, D-dimer 1640, sodium 136, potassium 4.6, creatinine 0.52, blood sugar 117, AST/ALT 195/75, total bilirubin 3.2, albumin 3.1, procalcitonin 0.31, UA shows nitrate positive, leukoesterase 2+, WBC 5?10, bacteria moderate, chest x-ray shows trace pleural effusion with atelectasis and mild cardiomegaly, abdominal CT scan shows bowel wall thickening in colon significant decreased compared to the previous CT scan, hepatomegaly with diffuse hepatic steatosis, signs of portal hypertension, ascites and cirrhosis. CT of the chest shows no PE, bilateral atelectasis and low lung volume, trace bilateral pleural effusion and mild cardiomegaly. Vital signs shows temperature 98.7, pulse 121, blood pressure 103/54, oxygen saturation 93% on room air. She was given in the ED ceftriaxone 2 g IV, vancomycin 1.5 g IV, Toradol 15 mg IV, Ativan 0.5 mg IV, NS bolus 1 L Discharge Providers Provider Date of admission: 10/13/23 22:45 Discharge Date: 10/17/23 Primary care physician: Guillermo Espinoza MD Consults: 10/13/23 23:58 Consult to Discharge Planning Routine Comment: Discharge provider: Gopi Henderson DO Summary Hospital Course Discharge Diagnosis: # Sepsis ruled out - patient with elevation in bilirubin but unchanged from recently. SOFA score is 0. #Acute cystitis - WBC elevation possibly due to steroids, abdominal discomfort suspect related to ascites. - changed from meropenem to macrobid. Meropenem is excessive given penicillin and ctx allergy given presentation. Urine culture with multiple dion. - changed to Levaquin for possible colitis as the etiology for her abdominal pain. - finish 1 week of po levauin course at home #Alcohol use disorder: patient has been on librium taper from discharge, CIWA score 0, and librium was not continued here. #Alcoholic hepatitis: Removed 1.2 L abdominal fluid in the ED. No sign of SBP based on cell count. continue home diuretics for now with tosemide and aldactone, may need increase in diuretic dose but will wait until further improved from UTI. Likely to reaccumulate fluid after multiple boluses given in the ER. continue prednisone for previously managed alcoholic hepatitis. #Colitis - return / worsening of diarrhea. GI panel negative. - diarrhea now improving Hospital Course: Admitted for abd pain, UTI and ascites. Scans showed improved colitis and mod ascites. ED tapped off 1.2L and her pain improved. UA with pyuria so put on abx. Levaquin used due to PCN and rocephin allergies. Her abd pain improved and she was discharged home to finish 4 more days of levaquin to complete 1 week. She will arrange with her PCP to get outpatient paracentesis to prevent frequent reaccumulation of abd fluid. Exam Vital Signs (past 8 hours): - 10/17/23 04:00 Temperature 96.7 F L Pulse Rate 93 H Respiratory Rate 18 Blood Pressure 118/70 Pulse Oximetry 97 Oxygen Flow Rate 0 Oxygen Delivery Method Room Air Oxygen Flow Rate 0 Narrative Exam Narrative: Gen: NAD, obese, some scleral icterus CV: RRR no m/r/g Pulm: bibasilar decreased breath sounds Abd: Soft, mild distension and ascites, tender LLQ Ext: no edema or joint effusions. Objective Labs 10/17/23 04:30 10/16/23 07:40 Labs: Laboratory Results - last 24 hr 10/17/23 04:30 WBC 11.2 H RBC 3.00 L Hgb 11.4 L Hct 33.8 L MCV 112.9 H MCH 38.2 H MCHC 33.8 RDW 17.1 H Plt Count 244 Neut % (Auto) Not Reportable Lymph % (Auto) Not Reportable Alexander % (Auto) Not Reportable Eos % (Auto) Not Reportable Baso % (Auto) Not Reportable Lymph # (Auto) Not Reportable Alexander # (Auto) Not Reportable Baso # (Auto) Not Reportable Total Counted 100 Seg Neutrophils % 74.0 H Lymphocytes % (Manual) 23.0 L Monocytes % (Manual) 1.0 L Metamyelocytes % 2.0 H Neutrophils # (Manual) 8288 H Platelet Estimate Adeq Plt Morphology Comment RBC Morphology See below Anisocytosis 2+ H Macrocytosis 2+ H Target Cells 1+ H PFSH Medical History Alcoholic hepatitis Chicken pox (~1983) Social History household members: significant other, family and children Smoking Status: Former smoker Discharge Plan Discharge Plan Patient Disposition: Home Provider Discharge Comment: Please setup outpatient paracentesis (fluid out of belly) with your PCP. You'll finish a few more days of antibiotics. Discharge orders & Medications Prescriptions: New levofloxacin 750 mg tablet 750 mg PO DAILY 4 Days Qty: 4 0RF Rx Instructions: start on 10/18 Continued methocarbamol 750 mg tablet 750 mg PO TID Qty: 90 0RF prednisone 20 mg tablet 40 mg PO DAILY 25 Days Qty: 50 0RF Rx Instructions: start on 10/10 albuterol sulfate 90 mcg/actuation HFA aerosol inhaler 2 puff inhalation Q4-6H PRN (Reason: shortness of breath or wheezing) Qty: 8.5 2RF Rx Instructions: 1-2 PUFFS BY MOUTH EVERY 4 TO 6 HOURS NEEDED. spironolactone 25 mg tablet 25 mg PO DAILY Qty: 30 0RF torsemide 20 mg tablet 20 mg PO DAILY Qty: 30 0RF Discontinued chlordiazepoxide HCl 25 mg capsule See Rx Instructions .ROUTE .COMPLEX Qty: 6 0RF Rx Instructions: 25 mg orally 3 times daily for 1 day, then 25mg twice daily for 1 day, then 25mg once daily for 1 day then stop Follow up/Referrals: Guillermo Espinoza MD [Primary Care Provider] - 1 Week Visit Report/Discharge Packet Stand Alone Forms: Patient Portal/API, Stroke Signs & Symptoms Discharge Data Primary Care Provider: Guillermo Espinoza Quality VTE Deep Vein Thrombosis/Pulmonary Embolism Present on Admission: No
--- NOTE | 2023-10-17 14:20 | CM.DPC ---
Addendum entered by SUKHJINDER Garcia 10/17/23 16:10: ADD: Return call from [facility] stating they cannot accept the referral as they do not think pt meets criteria for homebound status. BF Original Note: DCP Discharge Home with HH Per MD, pt is medically stable to d/c home today with outpt f/u and MD feels pt would benefit from HH as she is a readmit and below baseline. SW met bedside with pt and explained role and she confirms she is agreeable to d/c home today and states her brother is coming off [facility] to provide transport today around 1400. Pt was requesting additional Online AA meeting information as she already has counselor/therapy resources that she plans to initiate once home from the hospital. SW provided the copy of the website for online AA meetings and discussed at length with pt her risk and protective factors and her plan for maintaining her goal of sobriety. Pt seems quite motivated and more insightful for treatment and sobriety at this time. SW also discussed HH services and frequency and pt confirms she is agreeable to HH referral and will see if she feels it is needed and helpful once HH contacts her post discharge. SW made referral to [facility], only agency that covers [facility], and they confirm they can accept her [employer] insurance but unfortunately they do not have a FORM RAISER for the [facility] at this time. F2F and HH orders complete. Plan: Patient to d/c home via brother POV back out to [facility] today with [facility] resources and new [facility] referral made. SUKHJINDER Garcia
== END 2023-10-17 14:20 | disposition home health service (06) | DRG 463 ==
LOC: ED 22:42 → AC 23:52
PROVIDERS: Internal Medicine; Admitting Provider Internal Medicine; Emergency Provider Emergency Medicine; Family Provider Family Medicine; PCP Family Medicine; Referring Provider Emergency Medicine; Visit Provider Internal Medicine
DX: N30.00 Acute cystitis without hematuria (principal); K70.11 Alcoholic hepatitis with ascites; K52.9 Noninfective gastroenteritis and colitis, unspecified; F10.988 Alcohol use, unspecified with other alcohol-induced disorder; Z87.891 Personal history of nicotine dependence; Z88.1 Allergy status to other antibiotic agents; Z88.0 Allergy status to penicillin
CPT/HCPCS: 36415; 49082; 71045; 71275; 74177; 76705; 80053; 81001; 82550; 83605; 83735; 84145; 84484; 85007; 85025; 85379; 85610; 87040; 87070; 87075; 87086; 87205; 87507; 87633; 89051; 93005; 96365; 96375; 99285; 99291; J1885; J1956; J2185; Q9967

== ENCOUNTER → 2023-10-29 10:31 | Outpatient (CLI) | payer OTHER, MEDICAID, SELFPAY ==
[2023-10-23 11:56] VITALS: BMI 37.3
[2023-10-29 19:46] LABS: Hematocrit 39.1 % (36-46); Hemoglobin 13.3 g/dL (12.0-16.0); Mean Corpuscular HGB Conc 34.1 % (30-36); Mean Corpuscular Hemoglobin 37.3 PG (26-34); Mean Corpuscular Volume 109.3 fL (80-100); Platelet Count 282 X10^3/uL (150-400); Red Blood Cell Count 3.58 X10^6/uL (4.0-5.2); Red Cell Distribution Width 15.9 % (11.6-14.8)
[2023-10-29 19:54] LABS: Add Manual Diff / Slide Review YES
[2023-10-29 20:02] LABS: Vitamin D 25 Hydroxy (D3) 22.1 ng/mL (30.0-100.0)
[2023-10-29 20:05] LABS: Alanine Aminotransferase 80 IU/L (<35); Albumin 4.2 g/dL (3.5-5.0); Albumin Globulin Ratio 1.1 (1.0-2.8); Alkaline Phosphatase 178 U/L (38-126); Aspartate Aminotransferase 72 IU/L (14-36); BUN Creatinine Ratio 27.9 (6-22); Bilirubin Total 1.9 mg/dL (0.2-1.3); Blood Urea Nitrogen 12 mg/dL (7-17); Calcium 9.7 mg/dL (8.4-10.2); Carbon Dioxide 24 mmol/L (22-32); Chloride 98 mmol/L (98-107); Estimated Glomerular Filt Rate > 60 mL/min (>60); Globulin 3.9 g/dL (1.7-4.1); Glucose 139 mg/dL (70-100); HEMOLYSIS < 15 (0-50); Potassium 3.3 mmol/L (3.4-5.1); Sodium 135 mmol/L (137-145); Total Protein 8.1 g/dL (6.3-8.2)
[2023-10-29 20:14] LABS: Anisocytosis 1+; Macrocytosis 2+; Neutrophils Absolute Manual 17400 /uL (3000-5900); Total Cells Counted 100
[2023-10-29 20:24] LABS: TSH w/ Reflex to FT4 1.19 uIU/mL (0.47-4.68)
[2023-10-29 20:47] LABS: Vitamin B12 790 pg/mL (239-931)
== END ==
PROVIDERS: PCP Family Medicine; Visit Provider Family Medicine
DX: K70.10 Alcoholic hepatitis without ascites (principal); K52.9 Noninfective gastroenteritis and colitis, unspecified; E80.6 Other disorders of bilirubin metabolism; D64.9 Anemia, unspecified
CPT/HCPCS: 80053; 82306; 82607; 84443; 85007; 85025

== ENCOUNTER → 2024-02-19 10:40 | Outpatient (CLI) | payer OTHER, MEDICAID, SELFPAY ==
[2023-12-05 13:38] VITALS: BMI 37.3
--- NOTE | 2024-02-19 12:45 | DI.US.S_ITS ---
LIMITED ULTRASOUND OF RIGHT BREAST AND AXILLA: 02/19/2024 CLINICAL: Palpable right breast lump. Comparison is made to exam dated: 02/19/2024 mammogram - [facility]. Color flow and real-time ultrasound of the right breast 12 o'clock, and axilla regions were performed. Castaneda scale images of the real-time examination were reviewed. No sonographic abnormalities in the right breast 12:00 position area of pain and palpable abnormality. There are normal lymph nodes present in the axilla. IMPRESSION: NEGATIVE There is no sonographic correlate to the patient's pain or palpable mass, and no evidence of malignancy. Return to annual mammogram screening schedule is recommended. Findings and recommendations were conveyed to the patient at time of exam. This exam was interpreted at Station ID: [id number]. Electronically Signed By: Shiela burnette/:02/19/2024 17:48:35 letter sent: Normal Exam Ultrasound BI-RADS: 1 Negative
--- NOTE | 2024-02-19 12:45 | DI.MG.S_ITS ---
BILATERAL DIGITAL DIAGNOSTIC MAMMOGRAM 3D/2D: 02/19/2024 CLINICAL: Baseline exam. Mass in the Right breast. Family History of breast cancer. No prior exams were available for comparison. Both breasts are heterogeneously dense, which may obscure small masses (category c / 51-75% glandular tissue). There are extensive vascular calcification in both breasts, advanced in extent for the patient's age. No significant masses, calcifications, or other findings are seen in either breast. Specifically, no finding to correspond to the patient's palpable abnormality and pain. IMPRESSION: INCOMPLETE: NEEDS ADDITIONAL IMAGING EVALUATION Bilateral mammograms are normal aside from extensive vascular calcifications. Clinical follow up is recommended. There is no abnormality seen in the right breast to correspond with the palpable abnormality and pain at 12 o'clock. Ultrasound is recommended for full evaluation of this area. This was performed immediately following this exam. Based on Tyrer-Cuzick model (a risk assessment model), the patient's lifetime risk is 21.1% and her 10 year risk is 3.0%. If a patient has an elevated risk, a more comprehensive evaluation should be considered and/or a referral to a genetic counselor. The [employer], [employer], and NCCN Guidelines advise the consideration of Breast MRI as an adjunct to screening mammography in patients whose Lifetime risk to develop breast cancer is 20% or higher. This exam was interpreted at Station ID: [id number]. NOTE: For mammograms, a report in lay terms will be sent to the patient. Approximately 15% of breast malignancies will not be visualized mammographically. In the management of a palpable breast mass, a negative mammogram must not discourage biopsy of a clinically suspicious lesion. Electronically Signed By: Shiela burnette/:02/19/2024 15:35:23 ACR BI-RADS Category 0: Incomplete [id number]
== END ==
PROVIDERS: PCP Family Medicine; Referring Provider Family Medicine; Visit Provider Family Medicine
DX: R92.8 Other abnormal and inconclusive findings on diagnostic imaging of breast; N63.11 Unspecified lump in the right breast, upper outer quadrant; R92.333 Mammographic heterogeneous density, bilateral breasts; K70.31 Alcoholic cirrhosis of liver with ascites; K70.11 Alcoholic hepatitis with ascites; M10.9 Gout, unspecified; D64.9 Anemia, unspecified
CPT/HCPCS: 76642; 77066; G0279

== ENCOUNTER → 2024-03-17 10:02 | Outpatient (CLI) | payer OTHER, MEDICAID, SELFPAY ==
[2023-12-05 13:38] VITALS: BMI 37.3
[2024-03-17 20:59] LABS: Add Manual Diff / Slide Review NO; Basophils Absolute Auto 100 /uL (0-100); Eosinophils Absolute Auto 100 /uL (0-450); Hemoglobin 13.1 g/dL (12.0-16.0); Lymphocytes Absolute Auto 1800 /uL (1100-4500); Lymphocytes Percent Auto 30.6 % (25-40); Mean Corpuscular HGB Conc 33.7 % (30-36); Mean Corpuscular Hemoglobin 30.4 PG (26-34); Mean Corpuscular Volume 90.4 fL (80-100); Monocytes Absolute Auto 300 /uL (0-900); Monocytes Percent Auto 4.9 % (3-14); Neutrophils Absolute Auto 3600 /uL (1500-7000); Neutrophils Percent Auto 61.5 % (50-75); Platelet Count 184 X10^3/uL (150-400); Red Blood Cell Count 4.32 X10^6/uL (4.0-5.2); Red Cell Distribution Width 13.7 % (11.6-14.8); White Blood Cell Count 5.9 X10^3/uL (4.5-11.0)
[2024-03-17 21:10] LABS: Alanine Aminotransferase 23 IU/L (<35); Albumin 4.2 g/dL (3.5-5.0); Albumin Globulin Ratio 1.4 (1.0-2.8); Alkaline Phosphatase 90 U/L (38-126); Aspartate Aminotransferase 29 IU/L (14-36); BUN Creatinine Ratio 27.9 (6-22); Bilirubin Total 1.2 mg/dL (0.2-1.3); Blood Urea Nitrogen 12 mg/dL (7-17); Calcium 9.4 mg/dL (8.4-10.2); Carbon Dioxide 25 mmol/L (22-32); Chloride 105 mmol/L (98-107); Cholesterol 205 mg/dL (140-199); Estimated Glomerular Filt Rate > 60 mL/min (>60); Glucose 96 mg/dL (70-100); HDL Cholesterol 79 mg/dL (40-60); HEMOLYSIS < 15 (0-50); LDL Cholesterol Calculated 112 mg/dL (<100); Potassium 4.1 mmol/L (3.4-5.1); Sodium 137 mmol/L (137-145); Total Protein 7.2 g/dL (6.3-8.2); Triglycerides 72 mg/dL (35-150); Uric Acid 5.9 mg/dL (2.5-6.2)
[2024-03-17 21:55] LABS: Hepatitis B Surface Antigen NEGATIVE s/c (NEGATIVE)
[2024-03-17 22:00] LABS: Vitamin B12 730 pg/mL (239-931)
[2024-03-17 22:12] LABS: Hep C Virus Ab w/Reflex Quant NEGATIVE s/c (NEGATIVE)
== END ==
PROVIDERS: PCP Family Medicine; Visit Provider Family Medicine
DX: M1A.0720 Idiopathic chronic gout, left ankle and foot, without tophus (tophi) (principal); R17 Unspecified jaundice; K70.30 Alcoholic cirrhosis of liver without ascites; D64.9 Anemia, unspecified; K70.11 Alcoholic hepatitis with ascites
CPT/HCPCS: 80053; 80061; 82607; 84550; 85025; 86803; 87340

== ENCOUNTER → 2024-10-05 10:52 | Outpatient (CLI) | payer OTHER, MEDICAID, SELFPAY ==
[2023-12-05 13:38] VITALS: BMI 37.3
[2024-10-05 19:20] LABS: Add Manual Diff / Slide Review NO; Basophils Absolute Auto 0 /uL (0-100); Basophils Percent Auto 0.5 % (0-2); Eosinophils Absolute Auto 200 /uL (0-450); Eosinophils Percent Auto 2.2 % (2-4); Hematocrit 42.1 % (36-46); Lymphocytes Absolute Auto 2400 /uL (1100-4500); Lymphocytes Percent Auto 31.1 % (25-40); Mean Corpuscular HGB Conc 33.3 % (30-36); Mean Corpuscular Hemoglobin 30.2 PG (26-34); Mean Corpuscular Volume 90.7 fL (80-100); Monocytes Absolute Auto 400 /uL (0-900); Neutrophils Absolute Auto 4700 /uL (1500-7000); Neutrophils Percent Auto 61.2 % (50-75); Platelet Count 232 X10^3/uL (150-400); Red Blood Cell Count 4.64 X10^6/uL (4.0-5.2); Red Cell Distribution Width 13.9 % (11.6-14.8); White Blood Cell Count 7.8 X10^3/uL (4.5-11.0)
[2024-10-05 19:27] LABS: Alanine Aminotransferase 32 IU/L (<35); Albumin 3.9 g/dL (3.5-5.0); Albumin Globulin Ratio 1.3 (1.0-2.8); Alkaline Phosphatase 96 U/L (38-126); Aspartate Aminotransferase 29 IU/L (14-36); BUN Creatinine Ratio 26.4 (6-22); Blood Urea Nitrogen 14 mg/dL (7-17); Calcium 9.4 mg/dL (8.4-10.2); Carbon Dioxide 27 mmol/L (22-32); Chloride 103 mmol/L (98-107); Estimated Glomerular Filt Rate > 60 mL/min (>60); Globulin 3.1 g/dL (1.7-4.1); Glucose 94 mg/dL (70-100); HEMOLYSIS < 15 (0-50); Sodium 134 mmol/L (137-145)
== END ==
PROVIDERS: PCP Family Medicine; Referring Provider Family Medicine; Visit Provider Family Medicine
DX: R10.9 Unspecified abdominal pain (principal); K70.10 Alcoholic hepatitis without ascites
CPT/HCPCS: 80053; 85025

== ENCOUNTER 2025-01-15 09:00 | Emergency (ER) | payer OTHER, MEDICAID, SELFPAY ==
[2023-12-05 13:38] VITALS: BMI 37.3
[2025-01-15] VITALS (7 sets, daily range): BP systolic 147–179; BP diastolic 74–102; PULSE 81–107; RESP 19; TEMP 36.5; O2SAT 99–100; BMI 31.4
--- NOTE | 2025-01-15 09:25 | ED.BACK ---
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 Patient states it got really intense this morning and has since improved. She did take some Aleve. Denies any fevers, has had some nausea. No vomiting. No syncope. No chest pain or shortness of breath. [place] like she needed to have a bowel movement but did not. Has not had any dysuria urgency or frequency that she was appreciated. She notes her urine sample does seem dark. She denies any vaginal bleeding or discharge. States her last menstrual period was about 2 weeks ago. She states no concerns for or STIs. Patient has not had similar pain in the past. Patient states daily prescription medications. Former smoker, history of alcohol use but has been sober for 15 months. Denies recreational drugs other than marijuana. Patient lives on [facility] so came over on the [place] for evaluation. She defers anything additional for pain at this time. Related Data Previous Rx's Medication Instructions Recorded albuterol sulfate 90 mcg/actuation 2 puff inhalation Q4-6H PRN 07/30/24 aerosol inhaler shortness of breath or wheezing #8.5 grams nystatin 100,000 unit/gram topical 1 applic topical TID #15 grams 01/15/25 cream tamsulosin 0.4 mg capsule (Flomax) 0.4 mg PO DAILY #7 caps 01/15/25 tramadol 50 mg tablet 50 mg PO Q6H PRN pain #10 tabs 01/15/25 Allergies Allergy/AdvReac Type Severity Reaction Status Date / Time Penicillins Allergy Intermediate Rash Verified 09/22/24 10:07 ceftriaxone [From Rocephin] AdvReac Intermediate Verified 09/22/24 10:07 hydrocodone AdvReac Unknown ITCHING Verified 09/22/24 10:07 Review of Systems Review of Systems ROS Unobtainable: All systems reviewed & are unremarkable except as noted in HPI and below Patient History Medical History Alcoholic hepatitis Chicken pox (~1983) Social History household members: significant other, family and children Smoking Status: Former smoker Smoking Status: Former smoker alcohol intake frequency: 3 or more drinks per day Alcohol type: hard liquor Exam Narrative Exam Narrative: GEN: well nourished, well appearing female, alert and oriented x [default value], patient appears to be in mild distress. HEENT: Atraumatic, pupils are equal round reactive to light, extraocular movements are intact, nares are clear, TMs are clear with no fluid, there is no conjunctival pallor. Throat is clear without any exudates, erythema, tonsillar enlargement or uvular deviation HEART: Regular rate and rhythm without murmur, clicks, rubs. No carotid bruits, pulses are equal in upper and lower extremities LUNGS:Lungs clear to auscultation, no wheezes, rales, crackles, chest moves symmetrically ABD:bowel sounds normal, soft, non-tender, no guarding, rebound, rigidity, no masses noted, no hepatosplenomegaly, patient's pannus does have some erythema and irritation on the right side about 7 cm in length and extending out about 3 cm. Patient notes she was had issues on this on and off as she has had some weight loss her skin lays on top of itself. :No CVA tenderness MSCL: Non-tender, no muscle atrophy, muscles strength 5/5 upper and lower extremities, full range of motion, normal gait NEURO:CN 2-12 intact, sensation normal Initial Vital Signs Initial Vital Signs: Vital Signs Pulse Rate 107 H 01/15/25 09:13 Pulse Oximetry 99 01/15/25 09:13 Course Orders Ordered: ED Orders 01/15/25 09:35 Urine Culture Stat Urine Microscopic Stat 01/15/25 09:38 US pelvic complete Stat 01/15/25 10:15 CBC Auto Diff [Complete Blood Count AUTO DIFF] Stat CMP [Comprehensive Metabolic Panel] Stat Lipase Stat Vital Signs Vital signs: Vital Signs - 8 hr 01/15/25 09:13 01/15/25 09:14 01/15/25 09:14 Temperature Pulse Rate 107 H 104 H Respiratory Rate Blood Pressure 179/102 H Pulse Oximetry 99 100 Oxygen Delivery Method Room Air 01/15/25 09:17 01/15/25 11:07 01/15/25 11:07 Temperature 97.7 F Pulse Rate 102 H 81 Respiratory Rate 19 Blood Pressure 179/102 H 152/78 H Pulse Oximetry 100 100 Oxygen Delivery Method Room Air Room Air 01/15/25 11:30 01/15/25 12:00 01/15/25 12:04 Temperature Pulse Rate 93 H 95 H 93 H Respiratory Rate Blood Pressure Pulse Oximetry 99 100 100 Oxygen Delivery Method Room Air Room Air 01/15/25 12:04 Temperature Pulse Rate Respiratory Rate Blood Pressure 147/74 H Pulse Oximetry Oxygen Delivery Method MDM - Back Pain/Injury Lab Data 01/15/25 10:15 01/15/25 10:15 Labs: Lab Results 01/15/25 01/15/25 Range/Units 09:35 10:15 WBC 10.9 (4.5-11.0) X10^3/uL RBC 4.44 (4.0-5.2) X10^6/uL Hgb 13.5 (12.0-16.0) g/dL Hct 39.3 (36-46) % MCV 88.5 (80-100) fL MCH 30.3 (26-34) PG MCHC 34.3 (30-36) % RDW 13.4 (11.6-14.8) % Plt Count 265 (150-400) X10^3/uL Neut % (Auto) 73.6 (50-75) % Lymph % (Auto) 21.1 L (25-40) % Henderson % (Auto) 3.5 (3-14) % Eos % (Auto) 1.0 L (2-4) % Baso % (Auto) 0.8 (0-2) % Neut # (Auto) 8000 H (7391-3362) /uL Lymph # (Auto) 2300 (7702-1181) /uL Henderson # (Auto) 400 (0-900) /uL Eos # (Auto) 100 (0-450) /uL Baso # (Auto) 100 (0-100) /uL Sodium 137 (137-145) mmol/L Potassium 3.9 (3.4-5.1) mmol/L Chloride 104 (98-107) mmol/L Carbon Dioxide 23 (22-32) mmol/L BUN 16 (7-17) mg/dL Creatinine 0.56 (0.52-1.04) mg/dL Estimated GFR > 60 (>60) mL/min BUN/Creatinine Ratio 28.6 H (6-22) Glucose 112 H (70-100) mg/dL Calcium 8.8 (8.4-10.2) mg/dL Total Bilirubin 1.1 (0.2-1.3) mg/dL AST 33 (14-36) IU/L ALT 30 (<35) IU/L Alkaline Phosphatase 88 (38-126) U/L Total Protein 7.8 (6.3-8.2) g/dL Albumin 4.3 (3.5-5.0) g/dL Globulin 3.5 (1.7-4.1) g/dL Albumin/Globulin Ratio 1.2 (1.0-2.8) Lipase 63 (23-300) U/L Urine RBC 10-30/hpf H (0-5/HPF) Urine WBC 5-10/hpf H (0-5/HPF) Ur Squamous Epith Cells 1-5 /hpf (0-5/HPF) Urine Bacteria Moderate (10-30) H (None) Ur Culture Indicated? Specimen cultured Vol Urine Centrifuged 10ml (spun) Point of Care Testing Test Results Negative Urine Dip Bedside Urine Glucose Negative Bedside Urine Bilirubin - Negative Bedside Urine Ketone +/- 5 Urine Specific [place]iken 1.015 Bedside Urine Occult Blood +++ Bedside Urine pH 6.0 Bedside Urine Protein + 30 Bedside Urine Urobilinogen - Negative Bedside Urine Nitrite - Negative Bedside Urine Leukocytes - Negative Esterase MDM Narrative Medical decision making narrative: Labs show normal white count hemoglobin and platelets. Chemistries are appropriate, glucose is 112 LFTs are negative with a lipase is 63. Point of care urine dip shows blood, negative for nitrates or leuks. Point of care is negative. Microscopy 10-30 RBCs 5-10 WBCs 1-5 squamous moderate bacteria was sent for culture. Pelvic ultrasound uterus is normal in size myometrium homogeneous endometrium 7 mm, in thickness right ovary not identified left ovary measures 4.8 x 2.1.24. cm with a normal sonographic appearance no adnexal masses no other pathologic free fluid in the abdomen or pelvis. Limited evaluation of the kidney shows no hydro with a grossly normal renal morphology. Discussed patient from her description suspect she may have kidney stone workup today shows normal left ovary, right was not imaged patient's symptoms are more on the left side normal kidneys. She was nontender on exam is overall reassuring labs and hematuria. Discussed CT imaging with patient patient defers. We will await culture as patient has not had any urinary symptoms. Will go ahead and cover for potential kidney stone with Flomax and short course of pain medication. Discussed return precautions. Patient pain overall continues to be present but mild. We will give short course of pain medication, Flomax. She did have what appears to be little bit of a yeast infection in the folds of her pannus so was given a topical antifungal as well as discussed to use barrier ointment such as zinc oxide. Discharge Plan Departure Patient Disposition: Home Clinical Impression: Candidiasis of skin, Left sided abdominal pain Instructions: DI for Kidney Stones Activity Restrictions/Additional Instructions: Your urine does show blood, it has been sent for urine culture. If you are culture is positive you will be called to start antibiotics typically takes 48-72 hours to result. If negative we would not call. Based on your workup today I suspect you have a small kidney stone take Flomax once daily until completed. You can take acetaminophen up to a 1000 mg every 6 hours and/or ibuprofen up to 600 mg every 6 hours as needed for pain. If inadequate for pain control you can take tramadol 1-2 tablets every 6 hours as needed. This medication can make you sleepy do not drive, perform hazardous activities or make any major decisions while taking it. This medication will make you constipated please take a stool softener once to twice daily until stools are soft and regular. Prescriptions were printed Use topical treatment on the affected area on your right lower abdomen as prescribed. Keep the area clean and dry you may find it helpful to use a topical barrier ointment. Please return for fevers, new or worsening abdominal back or flank pain, persistent vomiting, black or bloody stools, inability to urinate or other new or concerning changes. Prescriptions: New nystatin 100,000 unit/gram cream 1 applic topical TID Qty: 15 0RF Rx Instructions: Continue for 3 days after rash resolved. tamsulosin [Flomax] 0.4 mg capsule 0.4 mg PO DAILY Qty: 7 0RF tramadol 50 mg tablet 50 mg PO Q6H PRN (Reason: pain) Qty: 10 0RF No Action albuterol sulfate 90 mcg/actuation HFA aerosol inhaler 2 puff inhalation Q4-6H PRN (Reason: shortness of breath or wheezing) Qty: 8.5 2RF Rx Instructions: 1-2 PUFFS BY MOUTH EVERY 4 TO 6 HOURS NEEDED. Referrals: Guillermo Espinoza MD [Primary Care Provider] - Stand Alone Forms: Patient Portal/API/Survey
--- NOTE | 2025-01-15 09:38 | DI.US.S_ITS ---
PROCEDURE: US PELVIC COMPLETE INDICATIONS: LEFT FLANK/LLQ PAIN TECHNIQUE: Real-time scanning was performed of the pelvic organs, with image documentation. Additional endovaginal scanning was necessary due to incomplete visualization of the adnexal and endometrial structures by transabdominal scanning. COMPARISON: None. FINDINGS: Uterus: Uterus is normal in size at 9.1 x 5.2 x 6.6 cm. The myometrium is homogeneous. The endometrium measures 7 mm combined thickness. Ovaries: The right ovary is not identified. The left ovary measures 4.8 x 2.1 x 2.4 cm, with a calculated ovarian volume of 12.7 cc, and has a normal sonographic appearance. No adnexal masses are seen. Other: No pathologic free abdominal or pelvic fluid. Limited evaluation of the kidneys shows no hydronephrosis with grossly normal renal morphology. IMPRESSION: Non identification of the right ovary. Otherwise normal pelvic ultrasound. We strive to produce accurate, complete, and clear reports of imaging services. To assist us in improving patient care, this report was composed using standard report templates and voice recognition software. Therefore, it may contain abnormal punctuation, insertions and/or omissions. Occasional wrong-word or sound-alike substitutions may occur. Though we review the report and make efforts to correct it, we do recommend that the report be read carefully in proper context to recognize any text inaccuracies. Dictated by: Belle Alonso M.D. on 01/15/2025 at 9:48 Approved by: Belle Alonso M.D. on 01/15/2025 at 9:51
--- NOTE | 2025-01-15 09:42 | PC.NURSE ---
Ultrasound paged at [phone], Kathleen called at [phone].
[2025-01-15 10:23] LABS: Add Manual Diff / Slide Review NO; Basophils Absolute Auto 100 /uL (0-100); Basophils Percent Auto 0.8 % (0-2); Eosinophils Absolute Auto 100 /uL (0-450); Hematocrit 39.3 % (36-46); Hemoglobin 13.5 g/dL (12.0-16.0); Lymphocytes Absolute Auto 2300 /uL (1100-4500); Lymphocytes Percent Auto 21.1 % (25-40); Mean Corpuscular HGB Conc 34.3 % (30-36); Mean Corpuscular Hemoglobin 30.3 PG (26-34); Mean Corpuscular Volume 88.5 fL (80-100); Monocytes Absolute Auto 400 /uL (0-900); Monocytes Percent Auto 3.5 % (3-14); Neutrophils Absolute Auto 8000 /uL (1500-7000); Neutrophils Percent Auto 73.6 % (50-75); Platelet Count 265 X10^3/uL (150-400); Red Blood Cell Count 4.44 X10^6/uL (4.0-5.2); Red Cell Distribution Width 13.4 % (11.6-14.8); White Blood Cell Count 10.9 X10^3/uL (4.5-11.0)
[2025-01-15 10:44] LABS: Bacteria Urine Moderate (10-30); Culture Indicated Urine Specimen Cultured; RBC Urine 10-30/HPF (0-5/HPF); Squamous Epithelial Cell Urine 1-5 /HPF (0-5/HPF); Urine Volume 10mL (spun); WBC Urine 5-10/HPF (0-5/HPF)
[2025-01-15 11:26] LABS: Alanine Aminotransferase 30 IU/L (<35); Albumin 4.3 g/dL (3.5-5.0); Albumin Globulin Ratio 1.2 (1.0-2.8); Alkaline Phosphatase 88 U/L (38-126); Aspartate Aminotransferase 33 IU/L (14-36); BUN Creatinine Ratio 28.6 (6-22); Bilirubin Total 1.1 mg/dL (0.2-1.3); Blood Urea Nitrogen 16 mg/dL (7-17); Calcium 8.8 mg/dL (8.4-10.2); Carbon Dioxide 23 mmol/L (22-32); Chloride 104 mmol/L (98-107); Estimated Glomerular Filt Rate > 60 mL/min (>60); Globulin 3.5 g/dL (1.7-4.1); Glucose 112 mg/dL (70-100); HEMOLYSIS 27 (0-50); Lipase 63 U/L (23-300); Potassium 3.9 mmol/L (3.4-5.1); Sodium 137 mmol/L (137-145); Total Protein 7.8 g/dL (6.3-8.2)
== END 2025-01-15 12:33 | disposition home or self-care (01) ==
PROVIDERS: Emergency Provider Emergency Medicine; PCP Family Medicine
DX: R10.9 Unspecified abdominal pain (principal); B37.2 Candidiasis of skin and nail
CPT/HCPCS: 36415; 76830; 76856; 80053; 81003; 81015; 81025; 83690; 85025; 87086; 93976; 99283; 99284

== ENCOUNTER → 2025-03-29 10:51 | Outpatient (CLI) | payer OTHER, SELFPAY ==
[2023-12-05 13:38] VITALS: BMI 37.3
--- NOTE | 2025-03-29 10:53 | DI.MG.S_ITS ---
MM screening mammo BI: 03/29/2025. BI-RADS: 2 CLINICAL: 44-year old female for bilateral screening mammogram. Tyrer-Cuzick lifetime risk of 21.6%. Current reported family history of breast cancer: mother. PRIOR EXAMS 02/19/2024. MAMMOGRAPHY TECHNIQUE: 2D and 3D (tomosynthesis) digital mammographic views obtained, with additional images as needed for full coverage. Current study was also evaluated with a Computer Aided Detection (CAD) system. DENSITY C. The breasts are heterogeneously dense, which may obscure small masses. MAMMOGRAPHY FINDINGS Bilateral: Typically-benign vascular calcifications noted. IMPRESSION: * No evidence of malignancy with benign findings. RECOMMENDATIONS Bilateral * According to the Tyrer-Cuzick Risk Assessment Model, based on the information provided your patient has a greater than 20% lifetime risk for developing breast cancer. Consider supplemental screening with breast MRI and participation in a high risk screening program. * Annual screening mammography. OVERALL ASSESSMENT CATEGORY BI-RADS-2: Benign. The [employer] recommends annual screening mammography beginning at age 40 for women with average risk of breast cancer. ELECTRONICALLY SIGNED: Wesley Alvarado M.D. on 03/30/2025 at 08:28:26 AM PT Interpreting Station ID: [id number]
== END ==
PROVIDERS: PCP Family Medicine; Referring Provider Family Medicine; Visit Provider Family Medicine
DX: Z12.31 Encounter for screening mammogram for malignant neoplasm of breast (principal); Z80.3 Family history of malignant neoplasm of breast
CPT/HCPCS: 77063; 77067